=== PATIENT | female | born 1995 | race Caucasian/White ===

== ENCOUNTER → 2017-03-28 | Outpatient (CLI) | payer BC, OTHER ==
--- NOTE | 2017-03-31 13:25 | US ---
EXAM DATE: 03/28/17 PATIENT'S AGE: 21 Patient: DAWSON STEPHENS Facility: [facility], [place], [place] : 1995 Study: US OB Pelvis [id number]/12/2017 2:47:24 PM Ordering Physician: Jorge Godoy Final Report: Indication: Encounter for supervision of normal . Technique: Obstetric ultrasound. Comparison: No prior. Findings: There is a living single intrauterine gestation with calculated gestational age based on ultrasound measurements of 19 weeks 6 days. This is concordant with clinical age. Estimated weight is 304 g which is at the 33rd percentile. The heart rate is 144 beats per minute. - Measurements: Biparietal diameter: 4.9 cm, 20 weeks 5 days. Head circumference: 17.5 cm, 20 weeks 0 days. Abdominal circumference: 14.4 cm, 19 weeks 5 days. Femur length: 3 cm, 19 weeks 3 days. - Posterior placenta. Normal quantity amniotic fluid. - anatomic survey: Cerebral ventricles, cisterna magna, choroid plexus and cerebellum are unremarkable. Spine is unremarkable. Four-chamber heart, kidneys , urinary bladder and three-vessel cord are unremarkable. Four extremities unremarkable. Nasal bone unremarkable. No specific image of the upper lip was acquired. Impression: 1. Living single intrauterine gestation at 19 weeks 6 days based on ultrasound measurements. This is concordant with clinical age. 2. As visualized, the anatomic survey is unremarkable. No specific image of the upper lip was acquired. Consider obtaining an image of the upper lip to confirm that it is normal at a future followup examination. 3. Normal amniotic fluid. Dictated by Michael Ricardo MD @ Mar 28 2017 4:59PM (Electronic Signature) Report Signed by Proxy. CHRIS
== END ==
LOC: MW.US 13:00
PROVIDERS: ATTEND Advanced Practice Midwife
DX: Z34.90 Encounter for supervision of normal pregnancy, unspecified, unspecified trimester (principal); Z36 Encounter for antenatal screening of mother
CPT/HCPCS: 76805; 76805-26

== ENCOUNTER 2017-08-11 04:52 | Inpatient (IN) | payer BC, OTHER ==
[2017-08-11] MEDS ORDERED: Misoprostol 200 MCG Tab PO PRN (05:41)
[2017-08-11] MEDS ORDERED: Butorphanol 1 MG/ML SDV IVPUSH PRN (05:41)
[2017-08-11] MEDS ORDERED: Nalbuphine 10 MG/1 ML Vial IVPUSH PRN (05:41)
[2017-08-11] MEDS ORDERED: Carboprost Tromethamine 250 MCG/1 ML Amp IM PRN (05:41)
[2017-08-11] MEDS ORDERED: Methylergonovine 0.2 MG/1 ML Amp IM PRN (05:41)
[2017-08-11] MEDS ORDERED: Lidocaine 1% 50 ML MDV INJECT PRN (05:41)
[2017-08-11] MEDS ORDERED: Sodium Chloride 0.9% 2.5 ML Syringe FLUSH PRN (05:41)
[2017-08-11] MEDS ORDERED: Sodium Chloride 0.9% 10 ML Syringe FLUSH PRN (05:41)
[2017-08-11] MEDS ORDERED: Water For Irrigation,Sterile 1,000 ML Container IRR PRN (05:41)
[2017-08-11] MEDS ORDERED: Oxytocin/0.9 % Sodium Chloride 30 UNIT/500 ML BAG IV SCH ×2 (05:45→09:15)
[2017-08-11] MEDS ORDERED: FLU Vacc QS 2017-18 (36mos UP)/PF 60 MCG/0.5 ML Syringe IM ONE (06:30)
--- NOTE | 2017-08-11 08:05 | PCM.LDHP ---
L&D History of Present Illness - General Date of Service: 08/11/17 Admit Problem/Dx: Patient Status Order with Admit Dx/Problem 08/11/17 05:00 Patient Status [ADT] Routine 08/11/17 05:41 Patient Status [ADT] Routine Admission Diagnosis/Problem Admission Diagnosis/Problem 08/11/17 08:01 21yo G1 EDC 08/16/2017 39 2/7 weeks, A+, RI, GBS neg, Uneventful . History of Hodgkin lymphoma with Chemo, remission x2 yrs and Crohn disease. Source of Information: Patient History Limitations: Reports: No Limitations - History of Present Illness Location, : Reports: Abdomen Quality: Reports: Sharp Severity: Severe Improves with: Reports: None Worsens with: Reports: None Associated Symptoms: Reports: vaginal fluid - Related Data Allergies/Adverse Reactions: Allergies Allergy/AdvReac Type Severity Reaction Status Date / Time amoxicillin [From Augmentin] Allergy Cannot Verified 11/16/16 02:30 Remember clavulanic acid Allergy Cannot Verified 11/16/16 02:30 [From Augmentin] Remember Home Medications: Home Meds Hydrocodone/Acetaminophen [Lortab 5-325 mg Tablet] 1 each PO Q6HR PRN #8 tablet 11/16/16 [Rx] Ibuprofen [Motrin] 600 mg PO Q6H PRN #20 tablet 11/16/16 [Rx] Past Medical History HEENT History: Reports: None Cardiovascular History: Reports: None Respiratory History: Reports: None Gastrointestinal History: Reports: Other (See Below) Other Gastrointestinal History: crohns Genitourinary History: Reports: None 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 Musculoskeletal History: Reports: None Neurological History: Reports: None Psychiatric History: Reports: None Endocrine/Metabolic History: Reports: None Hematologic History: Reports: None Immunologic History: Reports: None Oncologic (Cancer) History: Reports: Hodgkin's Lymphoma Dermatologic History: Reports: None - Infectious Disease History Infectious Disease History: Reports: None - Past Surgical History HEENT Surgical History: Reports: None Cardiovascular Surgical History: Reports: None Musculoskeletal Surgical History: Reports: None Oncologic Surgical History: Reports: Bone Marrow Aspiration, Bone Marrow Transplant, Other (See Below) Other Oncologic Surgeries/Procedures: tube in back Social & Family History - Family History Family Medical History: Noncontributory - Tobacco Use Smoking Status *Q: Never Smoker Second Hand Smoke Exposure: No - Caffeine Use Caffeine Use: Reports: Coffee, Energy Drinks, Soda - Recreational Drug Use Recreational Drug Use: No H&P Review of Systems - Review of Systems: Review Of Systems: See Below General: Reports: No Symptoms HEENT: Reports: No Symptoms Pulmonary: Reports: No Symptoms Cardiovascular: Reports: No Symptoms Gastrointestinal: Reports: No Symptoms Genitourinary: Reports: No Symptoms Musculoskeletal: Reports: No Symptoms Skin: Reports: No Symptoms Psychiatric: Reports: No Symptoms Neurological: Reports: No Symptoms Hematologic/Lymphatic: Reports: No Symptoms Immunologic: Reports: No Symptoms L&D Exam - Exam Exam: See Below - Vital Signs Weight: 47.6 kg - Exam General: Alert, Oriented HEENT: Hearing Intact, PERRLA Lungs: Normal Respiratory Effort GI/Abdominal Exam: Soft, Non-Tender, No Organomegaly, No Distention, No Abnormal Bruit, No Mass, Pelvis Stable Rectal Exam: Deferred Genitourinary: Normal external exam, Normal bimanual exam, Cervical dilitation Back Exam: Full Range of Motion Extremities: Normal Inspection, Normal Range of Motion, Non-Tender, No Pedal Edema, Normal Capillary Refill Skin: Warm, Dry, Intact Neurological: Reflexes Equal Bilateral Psychiatric: Alert, Normal Affect, Normal Mood - Patient Data Lab Results Last 24 hrs: Laboratory Results - last 24 hr 08/11/17 08/11/17 08/11/17 Range/Units 05:15 05:59 05:59 WBC 10.28 (4.0-11.0) K/uL RBC 4.24 L (4.30-5.90) M/uL Hgb 10.6 L (12.0-16.0) g/dL Hct 33.4 L (36.0-46.0) % MCV 78.8 L (80.0-98.0) fL MCH 25.0 L (27.0-32.0) pg MCHC 31.7 (31.0-37.0) g/dL RDW Std Deviation 45.1 (28.0-62.0) fl RDW Coeff of Pallavi 16 H (11.0-15.0) % Plt Count 267 (150-400) K/uL MPV 9.80 (7.40-12.00) fL Nucleated RBC % 0.0 /100WBC Nucleated RBCs # 0 K/uL Membrane Rupture POSITIVE Blood Type A POSITIVE Antibody Screen NEGATIVE Result Diagrams: 08/11/17 05:59 - Problem List (1) Supervision of normal IUP (intrauterine ) in primigravida SNOMED Code(s): 91111936, 640206423, 250987359, 208389128 ICD Code: Z34.00 - ENCNTR FOR SUPRVSN OF NORMAL FIRST , UNSP TRIMESTER Status: Acute Current Visit: Yes Qualifiers: Trimester: third trimester Qualified Code(s): Z34.03 - Encounter for supervision of normal first , third trimester (2) SROM (spontaneous rupture of membranes) SNOMED Code(s): 985832919 ICD Code: [id number] - Status: Acute Priority: High Current Visit: Yes Problem List Initiated/Reviewed/Updated: Yes Orders Last 24hrs: Active Orders 24 hr Category Date Time Status Patient Status [ADT] Routine ADT 08/11/17 05:41 Active Heart Tones [RC] CONTINUOUS Care 08/11/17 05:41 Active Non Stress Test [RC] PER UNIT ROUTINE Care 08/11/17 05:00 Active Non Stress Test [RC] PER UNIT ROUTINE Care 08/11/17 05:41 Active May Shower [RC] ASDIRECTED Care 08/11/17 05:41 Active Notify Provider [RC] PRN Care 08/11/17 05:41 Active Up ad Mera [RC] ASDIRECTED Care 08/11/17 05:00 Active Up ad Mera [RC] ASDIRECTED Care 08/11/17 05:41 Active Vaginal Exam [RC] Click to Edit Care 08/11/17 05:00 Active Vaginal Exam [RC] PRN Care 08/11/17 05:41 Active Vital Signs [RC] PER UNIT ROUTINE Care 08/11/17 05:00 Active Vital Signs [RC] PER UNIT ROUTINE Care 08/11/17 05:41 Active Butorphanol [Stadol] Med 08/11/17 05:41 Active 1 mg IVPUSH Q1H PRN Carboprost Tromethamine [Hemabate DS] Med 08/11/17 05:41 Active 250 mcg IM ASDIRECTED PRN Lactated Ringers [Ringers, Lactated] 1,000 ml Med 08/11/17 05:45 Active IV ASDIRECTED Lidocaine 1% [Xylocaine 1%] Med 08/11/17 05:41 Active 50 ml INJECT .ONCE PRN Methylergonovine [Methergine] Med 08/11/17 05:41 Active 0.2 mg IM ASDIRECTED PRN Misoprostol [Cytotec] Med 08/11/17 05:41 Active 200 mcg PO .ONCE PRN Nalbuphine [Nubain] Med 08/11/17 05:41 Active 10 mg IVPUSH Q1H PRN Oxytocin/0.9 % Sodium Chloride [Oxytocin 30 Unit/500 ML Med 08/11/17 05:45 Active -NS] 30 unit in 500 ml IV TITRATE Sodium Chloride 0.9% [Saline Flush] Med 08/11/17 05:41 Active 10 ml FLUSH ASDIRECTED PRN Sodium Chloride 0.9% [Saline Flush] Med 08/11/17 05:41 Active 2.5 ml FLUSH ASDIRECTED PRN Water For Irrigation,Sterile [Sterile Water for Med 08/11/17 05:41 Active Irrigation] 1,000 ml IRR ASDIRECTED PRN Scalp Electrode [WOMSER] Per Unit Routine Oth 08/11/17 05:41 Ordered Peripheral IV Insertion Adult [OM.PC] Routine Oth 08/11/17 05:41 Ordered Resuscitation Status Routine Resus Stat 08/11/17 05:00 Ordered Medication Orders Butorphanol Tartrate (Stadol) 1 mg IVPUSH Q1H PRN PRN Reason: Pain Carboprost Tromethamine (Hemabate Ds) 250 mcg IM ASDIRECTED PRN PRN Reason: Post Hemorrhage Lactated Ringer's (Ringers, Lactated) 1,000 mls @ 150 mls/hr IV ASDIRECTED ALLIE Oxytocin/Sodium Chloride (Oxytocin 30 Unit/500 Ml-Ns) 30 unit in 500 mls @ 500 mls/hr IV TITRATE ALLIE Lidocaine HCl (Xylocaine 1%) 50 ml INJECT .ONCE PRN PRN Reason: Laceration repair Methylergonovine Maleate (Methergine) 0.2 mg IM ASDIRECTED PRN PRN Reason: Post Hemorrhage Misoprostol (Cytotec) 200 mcg PO .ONCE PRN PRN Reason: Post Hemorrhage Nalbuphine HCl (Nubain) 10 mg IVPUSH Q1H PRN PRN Reason: Pain (severe 7-10) Sodium Chloride (Saline Flush) 10 ml FLUSH ASDIRECTED PRN PRN Reason: Keep Vein Open Sodium Chloride (Saline Flush) 2.5 ml FLUSH ASDIRECTED PRN PRN Reason: Keep Vein Open Sterile Water (Sterile Water For Irrigation) 1,000 ml IRR ASDIRECTED PRN PRN Reason: delivery Assessment/Plan Comment:: Labor A: 21yo G1 EDC 08/16/2017 39 2/7 weeks, A+, RI, GBS neg, Uneventful . History of Hodgkin lymphoma with Chemo, remission x2 yrs and Crohn disease. A: Admit to L&D, start pitocin per protocol, anticipate Dr Ann riojas updated
[2017-08-11] MEDS ORDERED: Terbutaline 1 MG/ML SDV SUBCUT PRN (09:02)
[2017-08-11] MEDS ORDERED: Misoprostol 25 MCG (1/4 of 100 MCG) Tab VAG PRN (09:02)
[2017-08-11] MEDS ORDERED: Misoprostol 25 MCG (1/4 of 100 MCG) Tab VAG SCH (09:15)
[2017-08-11] MEDS ORDERED: Ondansetron 4 MG/2 ML SDV ONE (09:44)
[2017-08-11] MEDS: Lactated Ringers 1,000 ML IV SCH ×3 (12:24→13:29)
--- NOTE | 2017-08-11 12:33 | PCM.PREANE ---
Preanesthetic Assessment - Anesthesia/Transfusion/Family Hx Anesthesia History: Prior Anesthesia Without Reaction Transfusion History: No Prior Transfusion(s) - Review of Systems General: No Symptoms Pulmonary: No Symptoms Cardiovascular: No Symptoms Gastrointestinal: No Symptoms Neurological: No Symptoms Other: Reports: None - Physical Assessment Height: 5 ft 4.17 in Weight: 47.6 kg ASA Class: 2 Mental Status: Alert & Oriented x3 Airway Class: Mallampati = 2 Dentition: Reports: Normal Dentition Thyro-Mental Finger Breadths: 3 Mouth Opening Finger Breadths: 3 ROM/Head Extension: Full Lungs: Clear to Auscultation, Normal Respiratory Effort Cardiovascular: Regular Rate, Regular Rhythm - Lab Values: Laboratory Last Values WBC 10.28 K/uL (4.0-11.0) 08/11/17 05:59 RBC 4.24 M/uL (4.30-5.90) L 08/11/17 05:59 Hgb 10.6 g/dL (12.0-16.0) L 08/11/17 05:59 Hct 33.4 % (36.0-46.0) L 08/11/17 05:59 MCV 78.8 fL (80.0-98.0) L 08/11/17 05:59 MCH 25.0 pg (27.0-32.0) L 08/11/17 05:59 MCHC 31.7 g/dL (31.0-37.0) 08/11/17 05:59 RDW Std Deviation 45.1 fl (28.0-62.0) 08/11/17 05:59 RDW Coeff of Pallavi 16 % (11.0-15.0) H 08/11/17 05:59 Plt Count 267 K/uL (150-400) 08/11/17 05:59 MPV 9.80 fL (7.40-12.00) 08/11/17 05:59 Nucleated RBC % 0.0 /100WBC 08/11/17 05:59 Nucleated RBCs # 0 K/uL 08/11/17 05:59 Membrane Rupture POSITIVE 08/11/17 05:15 Blood Type A POSITIVE 08/11/17 05:59 Antibody Screen NEGATIVE 08/11/17 05:59 - Allergies Allergies/Adverse Reactions: Allergies Allergy/AdvReac Type Severity Reaction Status Date / Time amoxicillin [From Augmentin] Allergy Cannot Verified 11/16/16 02:30 Remember clavulanic acid Allergy Cannot Verified 11/16/16 02:30 [From Augmentin] Remember - Acknowledgements Anesthesia Type Planned: Epidural Pt an Appropriate Candidate for the Planned Anesthesia: Yes Alternatives and Risks of Anesthesia Discussed w Pt/Guardian: Yes Pt/Guardian Understands and Agrees with Anesthesia Plan: Yes PreAnesthesia Questionnaire HEENT History: Reports: None Cardiovascular History: Reports: None Respiratory History: Reports: None Gastrointestinal History: Reports: Other (See Below) Other Gastrointestinal History: crohns Genitourinary History: Reports: None 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 : 1 Para: 0 LMP (Approximate): Musculoskeletal History: Reports: None Neurological History: Reports: None Psychiatric History: Reports: None Endocrine/Metabolic History: Reports: None Hematologic History: Reports: None Immunologic History: Reports: None Oncologic (Cancer) History: Reports: Hodgkin's Lymphoma (remission x 2 years) Dermatologic History: Reports: None - Infectious Disease History Infectious Disease History: Reports: None - Past Surgical History HEENT Surgical History: Reports: None Cardiovascular Surgical History: Reports: None Musculoskeletal Surgical History: Reports: None Oncologic Surgical History: Reports: Bone Marrow Aspiration, Bone Marrow Transplant, Other (See Below) Other Oncologic Surgeries/Procedures: tube in back - SUBSTANCE USE Smoking Status *Q: Never Smoker Second Hand Smoke Exposure: No Recreational Drug Use History: No - HOME MEDS Home Medications: Home Meds Hydrocodone/Acetaminophen [Lortab 5-325 mg Tablet] 1 each PO Q6HR PRN #8 tablet 11/16/16 [Rx] Ibuprofen [Motrin] 600 mg PO Q6H PRN #20 tablet 11/16/16 [Rx] - CURRENT (IN HOUSE) MEDS Current Meds: Current Medications Butorphanol Tartrate (Stadol) 1 mg IVPUSH Q1H PRN PRN Reason: Pain Carboprost Tromethamine (Hemabate Ds) 250 mcg IM ASDIRECTED PRN PRN Reason: Post Hemorrhage Lactated Ringer's (Ringers, Lactated) 1,000 mls @ 150 mls/hr IV ASDIRECTED ALLIE Last Admin: 08/11/17 12:24 Dose: 999 mls/hr Oxytocin/Sodium Chloride (Oxytocin 30 Unit/500 Ml-Ns) 30 unit in 500 mls @ 500 mls/hr IV TITRATE ALLIE Oxytocin/Sodium Chloride (Oxytocin 30 Unit/500 Ml-Ns) 30 unit in 500 mls @ 2 mls/hr IV TITRATE ALLIE; 2 MUNITS/MIN PRN Reason: Protocol Last Titration: 08/11/17 11:15 Dose: 4 munits/min, 4 mls/hr Lidocaine HCl (Xylocaine 1%) 50 ml INJECT .ONCE PRN PRN Reason: Laceration repair Methylergonovine Maleate (Methergine) 0.2 mg IM ASDIRECTED PRN PRN Reason: Post Hemorrhage Misoprostol (Cytotec) 200 mcg PO .ONCE PRN PRN Reason: Post Hemorrhage Misoprostol (Cytotec) 25 mcg VAG .ONCE ALLIE Misoprostol (Cytotec) 25 mcg VAG Q4H PRN PRN Reason: Cervical Ripening Nalbuphine HCl (Nubain) 10 mg IVPUSH Q1H PRN PRN Reason: Pain (severe 7-10) Last Admin: 08/11/17 09:58 Dose: 10 mg Sodium Chloride (Saline Flush) 10 ml FLUSH ASDIRECTED PRN PRN Reason: Keep Vein Open Sodium Chloride (Saline Flush) 2.5 ml FLUSH ASDIRECTED PRN PRN Reason: Keep Vein Open Sterile Water (Sterile Water For Irrigation) 1,000 ml IRR ASDIRECTED PRN PRN Reason: delivery Terbutaline Sulfate (Brethine) 0.25 mg SUBCUT ASDIRECTED PRN PRN Reason: Tacysystole Discontinued Medications Ondansetron HCl (Zofran) Confirm Administered Dose 4 mg .ROUTE .[facility] ONE Stop: 08/11/17 09:45 Last Admin: 08/11/17 09:58 Dose: 4 mg
[2017-08-11] MEDS ORDERED: Ropivacaine HCl/PF 100 ML ONE ×2 (12:37→21:26)
[2017-08-11] MEDS ORDERED: fentaNYL 100 MCG/2 ML SDV ONE (12:37)
[2017-08-11] MEDS ORDERED: Phenylephrine 1% 10 MG/ML SDV ONE (13:33)
[2017-08-11] MEDS ORDERED: Bupivacaine 0.25% 10 ML SDV ONE (19:29)
[2017-08-11] MEDS ORDERED: Acetaminophen 500 MG Tab PO ONE (20:27)
[2017-08-11] MEDS ORDERED: Acetaminophen 500 MG Tab PO PRN ×2 (21:53)
[2017-08-11] MEDS ORDERED: oxyCODONE 5 MG Tab PO PRN (21:53)
[2017-08-11] MEDS ORDERED: Benzocaine/Menthol 20%-0.5% Spray 78 GM Cannister TOP PRN (21:53)
[2017-08-11] MEDS ORDERED: Bisacodyl 10 MG Supp RECTAL PRN (21:53)
[2017-08-11] MEDS ORDERED: Docusate Sodium 100 MG Cap PO PRN (21:53)
[2017-08-11] MEDS ORDERED: Lanolin 100% Cream 7 GM Tube TOP PRN (21:53)
[2017-08-11] MEDS ORDERED: Ibuprofen 400 MG Tab PO PRN (21:53)
[2017-08-11] MEDS ORDERED: Witch Hazel Medicated Pads 40/Jar TOP PRN (21:53)
--- NOTE | 2017-08-11 22:00 | PCM.DEL ---
L & D Note - General Info Date of Service: 08/11/17 Mother's Due Date: 08/16/17 - Delivery Note Labor: Spontaneous, Augmented by Oxytocin Delivery Outcome: Livebirth Infant Delivery Method: Spontaneous Vaginal Delivery-Single Presentation: Vertex Nuchal Cord: Present (x2 tight, cut at the perineum) Anesthesia Type: Epidural Amniotic Fluid Description: Clear Episiotomy Type: None Laceration: None Placenta: Intact, Spontaneous Cord: 3 Vessels Estimated Blood Loss: 100 Resuscitation Needed: No [place]: Stimulated Score 1 min: 8 Score 5 min: 8 Second Stage Interventions: Reports: Pushing Effectively Delivery Comments (Free Text/Narrative):: of viable female. Head delivered, nuchle x2 tight and clamped x2 and cut on the perineum. Shoulders and body followed easily. Infant spont cry placed on mothers abd with RN at for evaluation, Cord blood collected. Pitocin to IVF. Placenta delivered grossly intact. Inspection noted intact perineum. Bimanual normal exam. APGARS 8/8, Wt: 7lb 3oz, EBL 100cc. Mother and left in stable condition bonding well. Induction Criteria - Augmentation Estimated Pelvis: Reports: Adequate Weight Estimated:: Reports: AGA Estimated Weight if LGA: 3300 kg Reassuring Monitoring Strip: Yes Absence of Tachy Systole: Yes - General Info Date of Service: 08/11/17 Admission Dx/Problem (Free Text): Patient Status Order with Admit Dx/Problem 08/11/17 05:00 Patient Status [ADT] Routine 08/11/17 05:41 Patient Status [ADT] Routine Admission Diagnosis/Problem Admission Diagnosis/Problem 08/11/17 08:01 21yo G1 EDC 08/16/2017 39 2/7 weeks, A+, RI, GBS neg, Uneventful . History of Hodgkin lymphoma with Chemo, remission x2 yrs and Crohn disease. Functional Status: Reports: Pain Controlled - Review of Systems General: Reports: No Symptoms HEENT: Reports: No Symptoms Pulmonary: Reports: No Symptoms Cardiovascular: Reports: No Symptoms Gastrointestinal: Reports: No Symptoms Genitourinary: Reports: No Symptoms Musculoskeletal: Reports: No Symptoms Skin: Reports: No Symptoms Neurological: Reports: No Symptoms Psychiatric: Reports: No Symptoms - Patient Data Weight - Most Recent: 47.6 kg Lab Results Last 24 Hours: Laboratory Results - last 24 hr 08/11/17 08/11/17 08/11/17 Range/Units 05:15 05:59 05:59 WBC 10.28 (4.0-11.0) K/uL RBC 4.24 L (4.30-5.90) M/uL Hgb 10.6 L (12.0-16.0) g/dL Hct 33.4 L (36.0-46.0) % MCV 78.8 L (80.0-98.0) fL MCH 25.0 L (27.0-32.0) pg MCHC 31.7 (31.0-37.0) g/dL RDW Std Deviation 45.1 (28.0-62.0) fl RDW Coeff of Pallavi 16 H (11.0-15.0) % Plt Count 267 (150-400) K/uL MPV 9.80 (7.40-12.00) fL Nucleated RBC % 0.0 /100WBC Nucleated RBCs # 0 K/uL Membrane Rupture POSITIVE Blood Type A POSITIVE Antibody Screen NEGATIVE Med Orders - Current: Current Medications Discontinued Medications Acetaminophen (Tylenol Extra Strength) 1,000 mg PO ONETIME ONE Stop: 08/11/17 20:28 Bupivacaine HCl (Sensorcaine-Mpf 0.25%) Confirm Administered Dose 10 ml .ROUTE .[facility]-MED ONE Stop: 08/11/17 19:30 Butorphanol Tartrate (Stadol) 1 mg IVPUSH Q1H PRN PRN Reason: Pain Carboprost Tromethamine (Hemabate Ds) 250 mcg IM ASDIRECTED PRN PRN Reason: Post Hemorrhage Fentanyl (Sublimaze) Confirm Administered Dose 100 mcg .ROUTE .[facility]-MED ONE Stop: 08/11/17 12:38 Lactated Ringer's (Ringers, Lactated) 1,000 mls @ 150 mls/hr IV ASDIRECTED ALLIE Last Admin: 08/11/17 13:29 Dose: 999 mls/hr Oxytocin/Sodium Chloride (Oxytocin 30 Unit/500 Ml-Ns) 30 unit in 500 mls @ 500 mls/hr IV TITRATE ALLIE Oxytocin/Sodium Chloride (Oxytocin 30 Unit/500 Ml-Ns) 30 unit in 500 mls @ 2 mls/hr IV TITRATE ALLIE; 2 MUNITS/MIN PRN Reason: Protocol Last Titration: 08/11/17 17:12 Dose: 2 munits/min, 2 mls/hr Ropivacaine (Naropin 0.2%) Confirm Administered Dose 100 mls @ as directed .ROUTE .[facility]-MED ONE Stop: 08/11/17 12:38 Ropivacaine (Naropin 0.2%) Confirm Administered Dose 100 [facility]ls @ as [facility]: 08/11/17 21:27 Lidocaine HCl (Xylocaine 1%) 50 ml INJECT .ONCE PRN PRN Reason: Laceration repair Methylergonovine Maleate (Methergine) 0.2 mg IM ASDIRECTED PRN PRN Reason: Post Hemorrhage Misoprostol (Cytotec) 200 mcg PO .ONCE PRN PRN Reason: Post Hemorrhage Misoprostol (Cytotec) 25 mcg VAG .ONCE ALLIE Misoprostol (Cytotec) 25 mcg VAG Q4H PRN PRN Reason: Cervical Ripening Nalbuphine HCl (Nubain) 10 mg IVPUSH Q1H PRN PRN Reason: Pain (severe 7-10) Last Admin: 08/11/17 09:58 Dose: 10 mg Ondansetron HCl (Zofran) Confirm Administered Dose 4 mg .ROUTE .[facility] ONE Stop: 08/11/17 09:45 Last Admin: 08/11/17 09:58 Dose: 4 mg Phenylephrine HCl (Juan A-Synephrine) Confirm Administered Dose 10 mg .ROUTE .[facility]- MED ONE Stop: 08/11/17 13:34 Sodium Chloride (Saline Flush) 10 ml FLUSH ASDIRECTED PRN PRN Reason: Keep Vein Open Sodium Chloride (Saline Flush) 2.5 ml FLUSH ASDIRECTED PRN PRN Reason: Keep Vein Open Sterile Water (Sterile Water For Irrigation) 1,000 ml IRR ASDIRECTED PRN PRN Reason: delivery Terbutaline Sulfate (Brethine) 0.25 mg SUBCUT ASDIRECTED PRN PRN Reason: Tacysystole Last Admin: 08/11/17 13:15 Dose: 0.25 mg - Exam General: Alert, Oriented, Cooperative, No Acute Distress Lungs: Normal Respiratory Effort GI/Abdominal Exam: Soft, Non-Tender, No Distention (Female) Exam: Normal External Exam, Normal Bimanual Exam, Vaginal Bleeding Back Exam: Full Range of Motion Extremities: Normal Range of Motion, Non-Tender, No Pedal Edema, Normal Capillary Refill Skin: Warm, Dry, Intact Wound/Incisions: Healing Well Neurological: No New Focal Deficit, Normal Speech, Normal Tone Psy/Mental Status: Alert, Normal Affect, Normal Mood - Problem List & Annotations (1) Supervision of normal IUP (intrauterine ) in primigravida SNOMED Code(s): 18945769, 194486605, 822398698, 550551918 Code(s): Z34.00 - ENCNTR FOR SUPRVSN OF NORMAL FIRST , UNSP TRIMESTER Status: Acute Current Visit: Yes Qualifiers: Trimester: third trimester Qualified Code(s): Z34.03 - Encounter for supervision of normal first , third trimester (2) SROM (spontaneous rupture of membranes) SNOMED Code(s): 169019660 Code(s): VVW0001 - Status: Acute Priority: High Current Visit: Yes (3) (normal spontaneous vaginal delivery) SNOMED Code(s): 68226529 Code(s): O80 - ENCOUNTER FOR FULL-TERM UNCOMPLICATED DELIVERY Status: Acute Priority: High Current Visit: Yes - Problem List Review Problem List Initiated/Reviewed/Updated: Yes - My Orders Last 24 Hours: My Active Orders 08/11/17 05:00 Non Stress Test [RC] PER UNIT ROUTINE Vaginal Exam [RC] Click to Edit Vital Signs [RC] PER UNIT ROUTINE 08/11/17 05:41 Heart Tones [RC] CONTINUOUS Non Stress Test [RC] PER UNIT ROUTINE May Shower [RC] ASDIRECTED Notify Provider [RC] PRN Up ad Mera [RC] ASDIRECTED Vaginal Exam [RC] PRN Vital Signs [RC] PER UNIT ROUTINE 08/11/17 09:02 Bedrest Bathroom Privileges [RC] ASDIRECTED Communication Order [RC] ASDIRECTED Communication Order [RC] ASDIRECTED Notify Provider [RC] PRN Notify Provider [RC] STAT Oxygen Therapy [RC] ASDIRECTED Vaginal Exam [RC] PRN Vital Signs [RC] PER UNIT ROUTINE 08/11/17 21:53 Patient Status [ADT] Routine May Shower [RC] ASDIRECTED Up ad Mera [RC] ASDIRECTED Vital Signs [RC] PER UNIT ROUTINE Acetaminophen [Tylenol Extra Strength] 1,000 mg PO Q4H PRN Acetaminophen [Tylenol Extra Strength] 500 mg PO Q4H PRN Benzocaine/Menthol [Dermoplast Pain Relief 20%-0.5% Artesian] 78 gm TOP ASDIRECTED PRN Bisacodyl [Dulcolax] 10 mg RECTAL .ONCE PRN Docusate Sodium [Colace] 100 mg PO BID PRN Ibuprofen [Motrin] 400 mg PO Q4H PRN Ibuprofen [Motrin] 800 mg PO Q6H PRN Lanolin [Lansinoh HPA] See Dose Instructions TOP ASDIRECTED PRN Witch Polina [Tucks] 1 pad TOP ASDIRECTED PRN oxyCODONE 5 mg PO Q2H PRN Assess Lochia [WOMSER] Per Unit Routine Assess Uterine Involution [WOMSER] Per Unit Routine Peripheral IV Discontinue [OM.PC] Routine Resuscitation Status Routine 08/12/17 Breakfast Regular Diet [DIET] - Assessment Assessment:: Delivery A: over intact perineum. APGARS 8/8, WT 7lb 3oz, EBL 100cc. VSS, Temp 100.3 Stable - Plan Plan:: Labor A: 21yo G1 EDC 08/16/2017 39 2/7 weeks, A+, RI, GBS neg, Uneventful . History of Hodgkin lymphoma with Chemo, remission x2 yrs and Crohn disease. P: Admit to L&D, start pitocin per protocol, anticipate Dr Ann riojas updated Delivery: P: Routine pp plan of care.
[2017-08-12] MEDS: Ibuprofen 800 MG Tab PO PRN ×2 (01:35→13:53)
--- NOTE | 2017-08-12 07:34 | PCM48HPAN ---
Post Anesthesia Note - EVALUATION WITHIN 48HRS OF ANESTHETIC Vital Signs in Normal Range: Yes Patient Participated in Evaluation: Yes Respiratory Function Stable: Yes Airway Patent: Yes Cardiovascular Function Stable: Yes Hydration Status Stable: Yes Pain Control Satisfactory: Yes Nausea and Vomiting Control Satisfactory: Yes Mental Status Recovered: Yes
--- NOTE | 2017-08-12 09:23 | PCM.PNPP ---
- General Info Date of Service: 08/12/17 Functional Status: Reports: Pain Controlled - Review of Systems General: Reports: No Symptoms HEENT: Reports: No Symptoms Pulmonary: Reports: No Symptoms Cardiovascular: Reports: No Symptoms Gastrointestinal: Reports: No Symptoms Genitourinary: Reports: No Symptoms Musculoskeletal: Reports: No Symptoms Skin: Reports: No Symptoms Neurological: Reports: No Symptoms Psychiatric: Reports: No Symptoms - General Info Date of Service: 08/12/17 - Patient Data Vital Signs - Most Recent: Last Vital Signs Temp 36.9 C 08/12/17 08:10 Pulse 64 08/12/17 08:10 Resp 18 08/12/17 08:10 BP 97/53 L 08/12/17 08:10 Pulse Ox 99 08/12/17 08:10 Weight - Most Recent: 47.6 kg Med Orders - Current: Current Medications Acetaminophen (Tylenol Extra Strength) 500 mg PO Q4H PRN PRN Reason: Pain Acetaminophen (Tylenol Extra Strength) 1,000 mg PO Q4H PRN PRN Reason: Pain Benzocaine/Menthol (Dermoplast Pain Relief 20%-0.5% [place]) 0 gm TOP ASDIRECTED PRN PRN Reason: Perineal Comfort Measure Last Admin: 08/12/17 00:48 Dose: 1 can Bisacodyl (Dulcolax) 10 mg RECTAL .ONCE PRN PRN Reason: Constipation Docusate Sodium (Colace) 100 mg PO BID PRN PRN Reason: Constipation Emollient Ointment (Lansinoh Hpa) 0 gm TOP ASDIRECTED PRN PRN Reason: Sore Nipples Last Admin: 08/12/17 00:48 Dose: 1 tube Ibuprofen (Motrin) 400 mg PO Q4H PRN PRN Reason: Pain Ibuprofen (Motrin) 800 mg PO Q6H PRN PRN Reason: Pain Last Admin: 08/12/17 01:35 Dose: 800 mg Oxycodone HCl (Oxycodone) 5 mg PO Q2H PRN PRN Reason: Pain Last Admin: 08/12/17 01:39 Dose: 5 mg Witch Polina (Tucks) 1 pad TOP ASDIRECTED PRN PRN Reason: comfort care Last Admin: 08/12/17 00:47 Dose: 1 tub Discontinued Medications Acetaminophen (Tylenol Extra Strength) 1,000 mg PO ONETIME ONE Stop: 08/11/17 20:28 Last Admin: 08/12/17 06:30 Dose: Not Given Bupivacaine HCl (Sensorcaine-Mpf 0.25%) Confirm Administered Dose 10 ml .ROUTE .STK-MED ONE Stop: 08/11/17 19:30 Last Admin: 08/11/17 23:43 Dose: Not Given Butorphanol Tartrate (Stadol) 1 mg IVPUSH Q1H PRN PRN Reason: Pain Carboprost Tromethamine (Hemabate Ds) 250 mcg IM ASDIRECTED PRN PRN Reason: Post Hemorrhage Fentanyl (Sublimaze) Confirm Administered Dose 100 mcg .ROUTE .STK-MED ONE Stop: 08/11/17 12:38 Last Admin: 08/11/17 23:42 Dose: Not Given Lactated Ringer's (Ringers, Lactated) 1,000 mls @ 150 mls/hr IV ASDIRECTED ALLIE Last Admin: 08/11/17 13:29 Dose: 999 mls/hr Oxytocin/Sodium Chloride (Oxytocin 30 Unit/500 Ml-Ns) 30 unit in 500 mls @ 500 mls/hr IV TITRATE ALLIE Oxytocin/Sodium Chloride (Oxytocin 30 Unit/500 Ml-Ns) 30 unit in 500 mls @ 2 mls/hr IV TITRATE ALLIE; 2 MUNITS/MIN PRN Reason: Protocol Last Titration: 08/11/17 21:38 Dose: 999 mls/hr Ropivacaine (Naropin 0.2%) Confirm Administered Dose 100 mls @ as directed .ROUTE .STK-MED ONE Stop: 08/11/17 12:38 Last Admin: 08/11/17 23:42 Dose: Not Given Ropivacaine (Naropin 0.2%) Confirm Administered Dose 100 mls @ as directed .ROUTE .STK-MED ONE Stop: 08/11/17 21:27 Last Admin: 08/11/17 23:43 Dose: Not Given Lidocaine HCl (Xylocaine 1%) 50 ml INJECT .ONCE PRN PRN Reason: Laceration repair Methylergonovine Maleate (Methergine) 0.2 mg IM ASDIRECTED PRN PRN Reason: Post Hemorrhage Misoprostol (Cytotec) 200 mcg PO .ONCE PRN PRN Reason: Post Hemorrhage Misoprostol (Cytotec) 25 mcg VAG .ONCE ALLIE Misoprostol (Cytotec) 25 mcg VAG Q4H PRN PRN Reason: Cervical Ripening Nalbuphine HCl (Nubain) 10 mg IVPUSH Q1H PRN PRN Reason: Pain (severe 7-10) Last Admin: 08/11/17 09:58 Dose: 10 mg Ondansetron HCl (Zofran) Confirm Administered Dose 4 mg .ROUTE .STK-MED ONE Stop: 08/11/17 09:45 Last Admin: 08/11/17 09:58 Dose: 4 mg Phenylephrine HCl (Juan A-Synephrine) Confirm Administered Dose 10 mg .ROUTE .STK- MED ONE Stop: 08/11/17 13:34 Last Admin: 08/12/17 06:28 Dose: Not Given Sodium Chloride (Saline Flush) 10 ml FLUSH ASDIRECTED PRN PRN Reason: Keep Vein Open Sodium Chloride (Saline Flush) 2.5 ml FLUSH ASDIRECTED PRN PRN Reason: Keep Vein Open Sterile Water (Sterile Water For Irrigation) 1,000 ml IRR ASDIRECTED PRN PRN Reason: delivery Terbutaline Sulfate (Brethine) 0.25 mg SUBCUT ASDIRECTED PRN PRN Reason: Tacysystole Last Admin: 08/11/17 13:15 Dose: 0.25 mg - Infant Interaction Infant Disposition, : [place] in Room with Family Infant Interaction: Holding Infant Infant Feeding: Attempted ; Nursed Fair/Poor Support Person: Mother, Significant Other - Recovery Exam Fundal Tone: Firm Fundal Level: 2 Fingerbreadths Below Umbilicus Fundal Placement: Midline Lochia Amount: Scant Lochia Color: Rubra/Red Perineum Description: Edematous Episiotomy/Laceration: None Bladder Status: Voiding - Exam General: Alert, Oriented HEENT: Pupils Equal Neck: Supple Lungs: Clear to Auscultation, Normal Respiratory Effort Cardiovascular: Regular Rate, Regular Rhythm GI/Abdominal Exam: Normal Bowel Sounds, Soft, Non-Tender, No Organomegaly, No Distention, No Abnormal Bruit, No Mass, Pelvis Stable Extremities: Normal Inspection, Normal Range of Motion, Non-Tender, No Pedal Edema, Normal Capillary Refill Skin: Warm, Dry, Intact Wound/Incisions: Healing Well Neurological: No New Focal Deficit Psy/Mental Status: Alert, Normal Affect, Normal Mood - Problem List Review Problem List Initiated/Reviewed/Updated: Yes - Assessment Assessment:: Delivery A: over intact perineum. APGARS 8/8, WT 7lb 3oz, EBL 100cc. VSS, Temp 100.3 Stable - Plan Plan:: Labor A: 21yo G1 EDC 08/16/2017 39 2/7 weeks, A+, RI, GBS neg, Uneventful . History of Hodgkin lymphoma with Chemo, remission x2 yrs and Crohn disease. P: Admit to L&D, start pitocin per protocol, anticipate sve, Dr Juarez updated Delivery: P: Routine pp plan of care.
--- NOTE | 2017-08-13 08:20 | PCM.DCSUM1 ---
Discharge Summary - Hospital Course Free Text/Narrative:: Discharge home with infant. Follow up in 6 weeks or sooner if needed. - Discharge Data Discharge Date: 08/13/17 Discharge Disposition: Home, Self-Care 01 Condition: Good - Discharge Diagnosis/Problem(s) (1) Supervision of normal IUP (intrauterine ) in primigravida SNOMED Code(s): 94915906, 087125176, 584987757, 836179866 ICD Code: Z34.00 - ENCNTR FOR SUPRVSN OF NORMAL FIRST , UNSP TRIMESTER Status: Acute Current Visit: Yes Qualifiers: Trimester: third trimester Qualified Code(s): Z34.03 - Encounter for supervision of normal first , third trimester (2) SROM (spontaneous rupture of membranes) SNOMED Code(s): 889696606 ICD Code: [id number] - Status: Acute Priority: High Current Visit: Yes (3) (normal spontaneous vaginal delivery) SNOMED Code(s): 92980730 ICD Code: O80 - ENCOUNTER FOR FULL-TERM UNCOMPLICATED DELIVERY Status: Acute Priority: High Current Visit: Yes - Patient Instructions Diet: Usual Diet as Tolerated Activity: As Tolerated, Rest and Relax Today Driving: May Drive Today Showering/Bathing: May Shower Notify Provider of: Fever, Increased Pain, Swelling and Redness, Nausea and/or Vomiting Other/Special Instructions: Discharge home with infant. Follow up in 6 weeks or sooner if needed. - Discharge Plan Home Medications: Home Meds Hydrocodone/Acetaminophen [Lortab 5-325 mg Tablet] 1 each PO Q6HR PRN #8 tablet 11/16/16 [Rx] Ibuprofen [Motrin] 600 mg PO Q6H PRN #20 tablet 11/16/16 [Rx] Referrals: [facility] [Outside] Jayne Patel CNM [Mid-] - 09/22/17 10:45 am - General Info Date of Service: 08/13/17 Admission Dx/Problem (Free Text: Patient Status Order with Admit Dx/Problem 08/11/17 05:00 Patient Status [ADT] Routine 08/11/17 05:41 Patient Status [ADT] Routine Admission Diagnosis/Problem Admission Diagnosis/Problem 08/11/17 08:01 21yo G1 EDC 08/16/2017 39 2/7 weeks, A+, RI, GBS neg, Uneventful . History of Hodgkin lymphoma with Chemo, remission x2 yrs and Crohn disease. Functional Status: Reports: Pain Controlled, Tolerating Diet, Ambulating, Urinating - Review of Systems General: Reports: No Symptoms HEENT: Reports: No Symptoms Pulmonary: Reports: No Symptoms Cardiovascular: Reports: No Symptoms Gastrointestinal: Reports: No Symptoms Genitourinary: Reports: No Symptoms Musculoskeletal: Reports: No Symptoms Skin: Reports: No Symptoms Neurological: Reports: No Symptoms Psychiatric: Reports: No Symptoms - Patient Data Vitals - Most Recent: Last Vital Signs Temp 36.6 C 08/13/17 05:00 Pulse 69 08/13/17 05:00 Resp 18 08/13/17 05:00 BP 111/64 08/13/17 05:00 Pulse Ox 98 08/13/17 05:00 Weight - Most Recent: 47.6 kg Med Orders - Current: Current Medications Acetaminophen (Tylenol Extra Strength) 500 mg PO Q4H PRN PRN Reason: Pain Acetaminophen (Tylenol Extra Strength) 1,000 mg PO Q4H PRN PRN Reason: Pain Benzocaine/Menthol (Dermoplast Pain Relief 20%-0.5% [place]) 0 gm TOP ASDIRECTED PRN PRN Reason: Perineal Comfort Measure Last Admin: 08/12/17 00:48 Dose: 1 can Bisacodyl (Dulcolax) 10 mg RECTAL .ONCE PRN PRN Reason: Constipation Docusate Sodium (Colace) 100 mg PO BID PRN PRN Reason: Constipation Last Admin: 08/12/17 13:53 Dose: 100 mg Emollient Ointment (Lansinoh Hpa) 0 gm TOP ASDIRECTED PRN PRN Reason: Sore Nipples Last Admin: 08/12/17 00:48 Dose: 1 tube Ibuprofen (Motrin) 400 mg PO Q4H PRN PRN Reason: Pain Ibuprofen (Motrin) 800 mg PO Q6H PRN PRN Reason: Pain Last Admin: 08/12/17 13:53 Dose: 800 mg Oxycodone HCl (Oxycodone) 5 mg PO Q2H PRN PRN Reason: Pain Last Admin: 08/12/17 01:39 Dose: 5 mg Witch Polina (Tucks) 1 pad TOP ASDIRECTED PRN PRN Reason: comfort care Last Admin: 08/12/17 00:47 Dose: 1 tub Discontinued Medications Acetaminophen (Tylenol Extra Strength) 1,000 mg PO ONETIME ONE Stop: 08/11/17 20:28 Last Admin: 08/12/17 06:30 Dose: Not Given Bupivacaine HCl (Sensorcaine-Mpf 0.25%) Confirm Administered Dose 10 ml .ROUTE .STK-MED ONE Stop: 08/11/17 19:30 Last Admin: 08/11/17 23:43 Dose: Not Given Butorphanol Tartrate (Stadol) 1 mg IVPUSH Q1H PRN PRN Reason: Pain Carboprost Tromethamine (Hemabate Ds) 250 mcg IM ASDIRECTED PRN PRN Reason: Post Hemorrhage Fentanyl (Sublimaze) Confirm Administered Dose 100 mcg .ROUTE .[facility]-MED ONE Stop: 08/11/17 12:38 Last Admin: 08/11/17 23:42 Dose: Not Given Lactated Ringer's (Ringers, Lactated) 1,000 mls @ 150 mls/hr IV ASDIRECTED ALLIE Last Admin: 08/11/17 13:29 Dose: 999 mls/hr Oxytocin/Sodium Chloride (Oxytocin 30 Unit/500 Ml-Ns) 30 unit in 500 mls @ 500 mls/hr IV TITRATE ALLIE Oxytocin/Sodium Chloride (Oxytocin 30 Unit/500 Ml-Ns) 30 unit in 500 mls @ 2 mls/hr IV TITRATE ALLIE; 2 MUNITS/MIN PRN Reason: Protocol Last Titration: 08/11/17 21:38 Dose: 999 mls/hr Ropivacaine (Naropin 0.2%) Confirm Administered Dose 100 mls @ as directed .ROUTE .[facility]-MED ONE Stop: 08/11/17 12:38 Last Admin: 08/11/17 23:42 Dose: Not Given Ropivacaine (Naropin 0.2%) Confirm Administered Dose 100 mls @ as directed .ROUTE .[facility]-MED ONE Stop: 08/11/17 21:27 Last Admin: 08/11/17 23:43 Dose: Not Given Lidocaine HCl (Xylocaine 1%) 50 ml INJECT .ONCE PRN PRN Reason: Laceration repair Methylergonovine Maleate (Methergine) 0.2 mg IM ASDIRECTED PRN PRN Reason: Post Hemorrhage Misoprostol (Cytotec) 200 mcg PO .ONCE PRN PRN Reason: Post Hemorrhage Misoprostol (Cytotec) 25 mcg VAG .ONCE ALLIE Misoprostol (Cytotec) 25 mcg VAG Q4H PRN PRN Reason: Cervical Ripening Nalbuphine HCl (Nubain) 10 mg IVPUSH Q1H PRN PRN Reason: Pain (severe 7-10) Last Admin: 08/11/17 09:58 Dose: 10 mg Ondansetron HCl (Zofran) Confirm Administered Dose 4 mg .ROUTE .STK-MED ONE Stop: 08/11/17 09:45 Last Admin: 08/11/17 09:58 Dose: 4 mg Phenylephrine HCl (Juan A-Synephrine) Confirm Administered Dose 10 mg .ROUTE .STK- MED ONE Stop: 08/11/17 13:34 Last Admin: 08/12/17 06:28 Dose: Not Given Sodium Chloride (Saline Flush) 10 ml FLUSH ASDIRECTED PRN PRN Reason: Keep Vein Open Sodium Chloride (Saline Flush) 2.5 ml FLUSH ASDIRECTED PRN PRN Reason: Keep Vein Open Sterile Water (Sterile Water For Irrigation) 1,000 ml IRR ASDIRECTED PRN PRN Reason: delivery Terbutaline Sulfate (Brethine) 0.25 mg SUBCUT ASDIRECTED PRN PRN Reason: Tacysystole Last Admin: 08/11/17 13:15 Dose: 0.25 mg - Exam General: Reports: Alert, Cooperative, No Acute Distress Lungs: Reports: Normal Respiratory Effort GI/Abdominal Exam: Soft, Non-Tender, No Distention (Female) Exam: Vaginal Bleeding Rectal (Female) Exam: Deferred Back Exam: Reports: Full Range of Motion Extremities: Normal Range of Motion, Non-Tender, No Pedal Edema, Normal Capillary Refill Skin: Reports: Warm, Dry, Intact Wound/Incisions: Reports: Healing Well Neurological: Reports: No New Focal Deficit, Normal Speech, Normal Tone Psy/Mental Status: Reports: Alert, Normal Affect, Normal Mood *Q Meaningful Use (DIS) - VTE *Q VTE Criteria *Q: - Stroke *Q Stroke Criteria *Q: - AMI *Q AMI Criteria *Q:
[2017-08-13] MEDS ORDERED: FLU Vacc QS 2017-18 (36mos UP)/PF 60 MCG/0.5 ML Syringe IM ONE (09:30)
[2017-08-13 10:03] VITALS: BP 103/68
== END 2017-08-13 09:45 | disposition home or self-care (01) | DRG 560 ==
LOC: MW.OBCHECK 04:52 → MW.OB 04:58 → MW.OBCHECK 05:41 → MW.OB 05:41 → OBSVTOIN 21:53
PROVIDERS: ADMIT Obstetrics & Gynecology; ATTEND Obstetrics & Gynecology
PROC: 10E0XZZ Delivery of Products of Conception, External Approach (ICD-10-PCS; principal; 2017-08-11)
PROC: 3E033VJ Introduction of Other Hormone into Peripheral Vein, Percutaneous Approach (ICD-10-PCS; 2017-08-11)
DX: O42.02 Full-term premature rupture of membranes, onset of labor within 24 hours of rupture (principal); O69.1XX0 Labor and delivery complicated by cord around neck, with compression, not applicable or unspecified; O99.62 Diseases of the digestive system complicating childbirth; Z3A.39 39 weeks gestation of pregnancy; Z37.0 Single live birth; Z85.72 Personal history of non-Hodgkin lymphomas
CPT/HCPCS: 01967; 01996; 36415; 59025; 59409; 84112; 85027; 86850; 86900; 86901; 90471; 90686; A9270-GY; J2300; J2370; J2405; J2590; J2795; J3010; J3105; J7120

== ENCOUNTER 2021-02-19 12:21 | Emergency (ER) | payer BC, OTHER, SELFPAY ==
--- NOTE | 2021-02-19 12:23 | EDM.PDOC ---
ED HPI GENERAL MEDICAL PROBLEM - General Stated Complaint: unk Time Seen by Provider: 02/19/21 12:22 History Limitations: Reports: No Limitations - History of Present Illness INITIAL COMMENTS - FREE TEXT/NARRATIVE: 25 yo female past medical history Crohn's disease presents for nausea, vomiting, abdominal pain, diarrhea. Patient has noted symptoms for the last few days. She states that her Crohn's disease is usually well managed. She receives care here in town. Denies bloody stool or blood in her vomitus. Notes generalized abdominal cramping pain. No urinary symptoms. No fevers. Abdomen Pain Score (Numeric/FACES): 10 - Related Data Allergies Allergy/AdvReac Type Severity Reaction Status Date / Time amoxicillin [From Augmentin] Allergy Cannot Verified 02/19/21 12:36 Remember clavulanic acid Allergy Cannot Verified 02/19/21 12:36 [From Augmentin] Remember Home Meds: Home Meds Acetaminophen/oxyCODONE [Percocet 325-5 MG] 1 each PO Q4H PRN #18 tab 02/19/21 [Rx] Ciprofloxacin [Ciprofloxacin HCl] 500 mg PO DAILY 7 Days #7 tab 02/19/21 [Rx] Vedolizumab [Entyvio] 1 dose IV ASDIRECTED 02/19/21 [History] metroNIDAZOLE [Flagyl] 500 mg PO Q8H 7 Days #21 tab 02/19/21 [Rx] predniSONE [Prednisone] 20 mg PO ASDIRECTED #21 tablet 02/19/21 [Rx] Past Medical History HEENT History: Reports: None Cardiovascular History: Reports: None Respiratory History: Reports: None Gastrointestinal History: Reports: Other (See Below) Other Gastrointestinal History: crohns Genitourinary History: Reports: None CHART WRITER History: Reports: None Musculoskeletal History: Reports: None Neurological History: Reports: None Psychiatric History: Reports: None Endocrine/Metabolic History: Reports: None Hematologic History: Reports: None Immunologic History: Reports: None Oncologic (Cancer) History: Reports: Hodgkin's Lymphoma (remission x 2 years) Dermatologic History: Reports: None - Infectious Disease History Infectious Disease History: Reports: None - Past Surgical History HEENT Surgical History: Reports: None Cardiovascular Surgical History: Reports: None Musculoskeletal Surgical History: Reports: None Oncologic Surgical History: Reports: Bone Marrow Aspiration, Bone Marrow Transplant, Other (See Below) Other Oncologic Surgeries/Procedures: tube in back Social & Family History - Family History Family Medical History: No Pertinent Family History - Caffeine Use Caffeine Use: Reports: Coffee, Energy Drinks, Soda ED ROS GENERAL - Review of Systems Review Of Systems: Comprehensive ROS is negative, except as noted in HPI. ED EXAM, GENERAL - Physical Exam Exam: See Below Exam Limited By: No Limitations General Appearance: Alert, WD/WN, No Apparent Distress Throat/Mouth: Normal Voice, No Airway Compromise Neck: Normal Inspection Respiratory/Chest: No Respiratory Distress, Lungs Clear, Normal Breath Sounds, No Accessory Muscle Use Cardiovascular: Normal Peripheral Pulses, Regular Rate, Rhythm GI/Abdominal: Soft, Non-Tender Extremities: Normal Inspection Neurological: Alert, Normal Gait Psychiatric: Normal Affect, Normal Mood Skin Exam: Warm, Dry, Intact, Normal Color Course - Vital Signs Last Recorded V/S: Last Vital Signs Temp 97.3 F 02/19/21 12:34 Pulse 100 02/19/21 12:34 Resp 18 02/19/21 12:34 BP 109/81 02/19/21 12:34 Pulse Ox 96 02/19/21 12:34 - Orders/Labs/Meds Orders: Active Orders 24 hr Category Date Time Status Sodium Chloride 0.9% [Saline Flush] Med 02/19/21 12:36 Active 10 ml FLUSH ASDIRECTED PRN Sodium Chloride 0.9% [Saline Flush] Med 02/19/21 12:36 Active 2.5 ml FLUSH ASDIRECTED PRN Saline Lock Insert [OM.PC] Stat Oth 02/19/21 12:36 Ordered Medication Orders Sodium Chloride (Sodium Chloride 0.9% 10 Ml Syringe) 10 ml FLUSH ASDIRECTED PRN PRN Reason: Keep Vein Open Last Admin: 02/19/21 12:48 Dose: 10 ml Documented by: [id number] Sodium Chloride (Sodium Chloride 0.9% 2.5 Ml Syringe) 2.5 ml FLUSH ASDIRECTED PRN PRN Reason: Keep Vein Open Last Admin: 02/19/21 12:48 Dose: 2.5 ml Documented by: [email or web address] Labs: Laboratory Tests 02/19/21 02/19/21 02/19/21 Range/Units 12:41 12:41 12:55 WBC 9.38 (4.0-11.0) K/uL RBC 4.79 (4.30-5.90) M/uL Hgb 14.1 (12.0-16.0) g/dL Hct 41.4 (36.0-46.0) % MCV 86.4 (80.0-98.0) fL MCH 29.4 (27.0-32.0) pg MCHC 34.1 (31.0-37.0) g/dL RDW Std Deviation 39.1 (28.0-62.0) fl RDW Coeff of Pallavi 13 (11.0-15.0) % Plt Count 349 (150-400) K/uL MPV 9.30 (7.40-12.00) fL Neut % (Auto) 74.2 (48.0-80.0) % Lymph % (Auto) 16.8 (16.0-40.0) % [place] % (Auto) 7.4 (0.0-15.0) % Eos % (Auto) 1.3 (0.0-7.0) % Baso % (Auto) 0.3 (0.0-1.5) % Neut # (Auto) 7.0 H (1.4-5.7) K/uL Lymph # (Auto) 1.6 (0.6-2.4) K/uL [place] # (Auto) 0.7 (0.0-0.8) K/uL Eos # (Auto) 0.1 (0.0-0.7) K/uL Baso # (Auto) 0.0 (0.0-0.1) K/uL Lactate (0.20-2.00) mmol/L Sodium (136-145) mmol/L Potassium (3.5-5.1) mmol/L Chloride (98-107) mmol/L Carbon Dioxide (21.0-32.0) mmol/L BUN (7.0-18.0) mg/dL Creatinine (0.6-1.0) mg/dL Est Cr Clr Drug Dosing mL/min Estimated GFR (MDRD) ml/min Glucose (74-106) mg/dL Calcium (8.5-10.1) mg/dL Magnesium (1.8-2.4) mg/dL Total Bilirubin (0.2-1.0) mg/dL AST (15-37) IU/L ALT (14-63) IU/L Alkaline Phosphatase (46-116) U/L Total Protein (6.4-8.2) g/dL Albumin (3.4-5.0) g/dL Globulin (2.6-4.0) g/dL Albumin/Globulin Ratio (0.9-1.6) Lipase (73-393) U/L Urine Color DARK YELLOW Urine Appearance CLEAR Urine pH 6.0 (5.0-8.0) Ur Specific [place] 1.025 (1.001-1.035) Urine Protein NEGATIVE (NEGATIVE) mg/dL Urine Glucose (UA) NEGATIVE (NEGATIVE) mg/dL Urine Ketones TRACE H (NEGATIVE) mg/dL Urine Occult Blood NEGATIVE (NEGATIVE) Urine Nitrite NEGATIVE (NEGATIVE) Urine Bilirubin SMALL H (NEGATIVE) Urine Ictotest NEGATIVE Urine Urobilinogen 1.0 (<2.0) EU/dL Ur Leukocyte Esterase NEGATIVE (NEGATIVE) Urine HCG, Qual NEGATIVE (NEGATIVE) 02/19/21 02/19/21 Range/Units 12:55 12:55 WBC (4.0-11.0) K/uL RBC (4.30-5.90) M/uL Hgb (12.0-16.0) g/dL Hct (36.0-46.0) % MCV (80.0-98.0) fL MCH (27.0-32.0) pg MCHC (31.0-37.0) g/dL RDW Std Deviation (28.0-62.0) fl RDW Coeff of Pallavi (11.0-15.0) % Plt Count (150-400) K/uL MPV (7.40-12.00) fL Neut % (Auto) (48.0-80.0) % Lymph % (Auto) (16.0-40.0) % [place] % (Auto) (0.0-15.0) % Eos % (Auto) (0.0-7.0) % Baso % (Auto) (0.0-1.5) % Neut # (Auto) (1.4-5.7) K/uL Lymph # (Auto) (0.6-2.4) K/uL [place] # (Auto) (0.0-0.8) K/uL Eos # (Auto) (0.0-0.7) K/uL Baso # (Auto) (0.0-0.1) K/uL Lactate 0.8 (0.20-2.00) mmol/L Sodium 138 (136-145) mmol/L Potassium 3.2 L (3.5-5.1) mmol/L Chloride 105 (98-107) mmol/L Carbon Dioxide 23.6 (21.0-32.0) mmol/L BUN 9 (7.0-18.0) mg/dL Creatinine 0.8 (0.6-1.0) mg/dL Est Cr Clr Drug Dosing 93.64 mL/min Estimated GFR (MDRD) > 60.0 ml/min Glucose 98 (74-106) mg/dL Calcium 8.2 L (8.5-10.1) mg/dL Magnesium 2.2 (1.8-2.4) mg/dL Total Bilirubin 0.5 (0.2-1.0) mg/dL AST 15 (15-37) IU/L ALT 18 (14-63) IU/L Alkaline Phosphatase 84 (46-116) U/L Total Protein 7.2 (6.4-8.2) g/dL Albumin 3.2 L (3.4-5.0) g/dL Globulin 4.0 (2.6-4.0) g/dL Albumin/Globulin Ratio 0.8 L (0.9-1.6) Lipase 140 (73-393) U/L Urine Color Urine Appearance Urine pH (5.0-8.0) Ur Specific [place] (1.001-1.035) Urine Protein (NEGATIVE) mg/dL Urine Glucose (UA) (NEGATIVE) mg/dL Urine Ketones (NEGATIVE) mg/dL Urine Occult Blood (NEGATIVE) Urine Nitrite (NEGATIVE) Urine Bilirubin (NEGATIVE) Urine Ictotest Urine Urobilinogen (<2.0) EU/dL Ur Leukocyte Esterase (NEGATIVE) Urine HCG, Qual (NEGATIVE) Meds: Medications Generic Name Dose Route Start Last Admin Trade Name Freq PRN Reason Stop Dose Admin Sodium Chloride 10 ml 02/19/21 12:36 02/19/21 12:48 Sodium Chloride 0.9% 10 Ml Syringe FLUSH 10 ml ASDIRECTED PRN Administration Keep Vein Open Sodium Chloride 2.5 ml 02/19/21 12:36 02/19/21 12:48 Sodium Chloride 0.9% 2.5 Ml Syringe FLUSH 2.5 ml ASDIRECTED PRN Administration Keep Vein Open Discontinued Medications Generic Name Dose Route Start Last Admin Trade Name Matthew PRN Reason Stop Dose Admin Sodium Chloride 1,000 mls @ 999 mls/hr 02/19/21 12:36 02/19/21 12:47 Normal Saline IV 02/19/21 13:36 999 mls/hr .Bolus ONE Administration Ciprofloxacin/Dextrose 400 mg/ 200 mls @ 200 mls/hr 02/19/21 12:38 02/19/21 12:48 Premix IV 02/19/21 13:37 200 mls/hr STAT STA Administration Metronidazole 500 mg/ Premix 100 mls @ 100 mls/hr 02/19/21 12:38 02/19/21 12:48 IV 02/19/21 13:37 100 mls/hr ONETIME ONE Administration Morphine Sulfate 4 mg 02/19/21 12:36 02/19/21 12:47 Morphine 4 Mg/Ml Syringe IVPUSH 02/19/21 12:37 4 mg ONETIME ONE Administration Ondansetron HCl 4 mg 02/19/21 12:36 02/19/21 12:47 Ondansetron 4 Mg/2 Ml Sdv IVPUSH 02/19/21 12:37 4 mg ONETIME ONE Administration - Re-Assessments/Exams Free Text/Narrative Re-Assessment/Exam: 02/19/21 13:48 Labs are grossly unremarkable aside from mild hyperkalemia. Will discharge with Percocet, prednisone, Flagyl, Cipro. Recommend follow-up with primary care physician within the next week for reassessment. Return precautions were discussed at length. Departure - Departure Time of Disposition: 13:48 Disposition: Home, Self-Care 01 Condition: Good Clinical Impression: Acute Crohn's disease Qualifiers: Digestive disease complication type: without complication Qualified Code(s): K50.90 - Crohn's disease, unspecified, without complications - Discharge Information Prescriptions: Ciprofloxacin [Ciprofloxacin HCl] 500 mg PO DAILY 7 Days #7 tab metroNIDAZOLE [Flagyl] 500 mg PO Q8H 7 Days #21 tab Acetaminophen/oxyCODONE [Percocet 325-5 MG] 1 each PO Q4H PRN #18 tab PRN Reason: Pain predniSONE [Prednisone] 20 mg PO ASDIRECTED #21 tablet Referrals: Mely Nuñez, ORALIA [Primary Care Provider] - Additional Instructions: Please follow-up with your primary care provider within the next week for reassessment. You have been prescribed prednisone for the next 2 weeks to help with your Crohn's flare. You are also given a prescription for ciprofloxacin and Flagyl which are antibiotics in case there is underlying infection. You were also given a prescription for Percocet which is a pain medication. If your pain is worsening or you develop any new or concerning symptoms you are encouraged to return to the emergency department for reassessment. The following information is given to patients seen in the emergency department who are being discharged to home. This information is to outline your options for follow-up care. We provide all patients seen in our emergency department with a follow-up referral. The need for follow-up, as well as the timing and circumstances, are variable depending upon the specifics of your emergency department visit. If you don't have a primary care physician on staff, we will provide you with a referral. We always advise you to contact your personal physician following an emergency department visit to inform them of the circumstance of the visit and for follow-up with them and/or the need for any referrals to a consulting specialist. The emergency department will also refer you to a specialist when appropriate. This referral assures that you have the opportunity for follow-up care with a specialist. All of these measure are taken in an effort to provide you with optimal care, which includes your follow-up. Under all circumstances we always encourage you to contact your private physician who remains a resource for coordinating your care. When calling for follow-up care, please make the office aware that this follow-up is from your recent emergency room visit. If for any reason you are refused follow-up, please contact the [facility] Emergency Department at and asked to speak to the emergency department charge nurse. Please follow up with your primary care physician. If you do not have a primary care physician, see below: [facility] [address] [place] [id number] [facility] [address] [place] [address] [facility] [address] [place] [id number] Sepsis Event Note (ED) - Focused Exam Vital Signs: Vital Signs Temp Pulse Resp BP Pulse Ox 02/19/21 12:34 97.3 F 100 18 109/81 96 - My Orders Last 24 Hours: My Active Orders 02/19/21 12:36 Sodium Chloride 0.9% [Saline Flush] 10 ml FLUSH ASDIRECTED PRN Sodium Chloride 0.9% [Saline Flush] 2.5 ml FLUSH ASDIRECTED PRN Saline Lock Insert [OM.PC] Stat - Assessment/Plan Last 24 Hours: My Active Orders 02/19/21 12:36 Sodium Chloride 0.9% [Saline Flush] 10 ml FLUSH ASDIRECTED PRN Sodium Chloride 0.9% [Saline Flush] 2.5 ml FLUSH ASDIRECTED PRN Saline Lock Insert [OM.PC] Stat
[2021-02-19] MEDS ORDERED: Ondansetron 4 MG/2 ML SDV IVPUSH ONE (12:36)
[2021-02-19] MEDS ORDERED: Sodium Chloride 0.9% 10 ML Syringe FLUSH PRN (12:36)
[2021-02-19] MEDS ORDERED: Sodium Chloride 0.9% 2.5 ML Syringe FLUSH PRN (12:36)
[2021-02-19] MEDS ORDERED: Sodium Chloride 0.9% 1,000 ML IV ONE (12:36)
[2021-02-19] MEDS ORDERED: Morphine 4 MG/ML Syringe IVPUSH ONE (12:36)
[2021-02-19] MEDS ORDERED: Ciprofloxacin in D5W 400 MG in Premix Bag 1 BAG IV STA ×2 (12:38)
[2021-02-19] MEDS ORDERED: metroNIDAZOLE/Normal Saline 500 MG in Premix Bag 1 BAG IV ONE (12:38)
[2021-02-19 13:38] LABS: BLOOD UREA NITROGEN,BUN 9 mg/dL (7.0-18.0); CARBON DIOXIDE,CO2 23.6 mmol/L (21.0-32.0); CHLORIDE,CL 105 mmol/L (98-107); GLUCOSE RANDOM 98 mg/dL (74-106); LIPASE 140 U/L (73-393); POTASSIUM,K 3.2 mmol/L (3.5-5.1); SODIUM,NA 138 mmol/L (136-145)
[2021-02-19 14:59] VITALS: BP 95/64; PULSE 91
== END 2021-02-19 14:59 | disposition home or self-care (01) ==
LOC: MW.ED 12:21
DX: K50.90 Crohn's disease, unspecified, without complications (principal); Z88.0 Allergy status to penicillin; Z88.1 Allergy status to other antibiotic agents; Z79.899 Other long term (current) drug therapy
CPT/HCPCS: 36415; 80053; 81003; 81025; 83605; 83690; 83735; 85025; 96365; 96375; 99284; J0744; J2270; J2405; J3490; J7030; 99283

== ENCOUNTER 2021-08-01 16:23 | Emergency (ER) | payer BC, SELFPAY ==
[2021-08-01] MEDS ORDERED: Ibuprofen 600 MG Tab PO ONE (16:53)
[2021-08-01] MEDS ORDERED: Acetaminophen 500 MG Tab PO ONE (16:53)
[2021-08-01] MEDS ORDERED: Lactated Ringers 1,000 ML IV SCH (17:00)
--- NOTE | 2021-08-01 17:05 | EDM.PDOC ---
<Nathaniel Saul - Last Filed: 08/01/21 19:05> ED HPI GENERAL MEDICAL PROBLEM - General Chief Complaint: Fever Stated Complaint: RUNNING HIGH FEVER Time Seen by Provider: 08/01/21 16:49 - History of Present Illness INITIAL COMMENTS - FREE TEXT/NARRATIVE: CHIEF COMPLAINT(S): Fever HISTORY OF PRESENT ILLNESS: This is a 25-year-old man with a past medical history of Crohn's disease and prior history of Hodgkin's lymphoma who comes to the emergency department with a chief complaint of fever. The patient states that for approximately 14 hours she has been experiencing a fever. She says the max was 102.7. She states that she has some associated headache and total body aches. She denies any runny nose, congestion, sore throat. She denies any neck stiffness or neck pain. She denies any numbness, tingling, or weakness. She states that she just does not feel well and anytime she feels dizzy she starts to throw up. She denies any abdominal pain, melena, hematochezia, hematemesis or bilious emesis. She denies any recent travel, recent surgery, prior history of DVT or PE. She denies any sick contacts. She states that she has not vaccinated against Covid. She states that she has not been exposed to Covid. She states that she mainly gets headaches all the time and this is similar to all of her headaches. She describes as bifrontal not associated with any blurry vision, loss of vision, numbness, tingling, weakness. There are no aggravating or relieving factors. She has not yet tried anything for pain medication. In addition she states that every time her hip gets dislocated she gets a fever. She states that she just recently dislocated it but it back in now. She states that she is never had a fever this high. REVIEW OF SYSTEMS: Constitutional: Positive for fever Eyes: Denies eye pain Ears, Nose, Mouth, & Throat: Denies earache Cardiovascular: Denies chest pain Respiratory: Denies shortness of breath Gastrointestinal: Denies Nausea, vomiting, diarrhea, hematochezia. Genitourinary: Denies hematuria Skin:Denies a rash MSK: Positive for body aches Neurological: Positive for headache. Denies blurred vision, numbness, tingling, weakness, trouble walking, speaking or swallowing. Psychiatric: Denies depression PAST MEDICAL HISTORY: As per history of present illness and as reviewed below otherwise noncontributory. SURGICAL HISTORY: As per history of present illness and as reviewed below otherwise noncontributory. SOCIAL HISTORY: As per history of present illness and as reviewed below otherwise noncontributory. FAMILY HISTORY: As per history of present illness and as reviewed below otherwise noncontributory. EXAMINATION OF ORGAN SYSTEMS/BODY AREAS: Constitutional: Blood pressure was 111/72, heart rate 134, respiratory rate 20 with an oxygen saturation 96% on room air. Temperature 39.1 General: Young woman who does not appear to be in acute distress Psychiatric: Appropriate mood and affect. Eyes: No scleral icterus or conjunctival erythema ENMT: Moist mucous membranes. No pharyngeal erythema Cardiovascular: Tachycardic but regular. No gallops, murmurs, or rubs. Bilateral upper extremity pulses symmetric and intact. No peripheral edema. No JVD. Respiratory: Lungs clear to auscultation bilaterally. No wheezes, rales, or rhonchi. Gastrointestinal: Soft, non-tender, non-distended. Normoactive bowel sounds Genitourinary: No suprapubic tenderness Musculoskeletal: Normal range of motion. Negative for any meningeal signs. Skin: No lesions or abrasions. Neurological: Alert, GCS 15 strength and sensation grossly intact in upper and lower extremity bilaterally. MEDICAL DECISION MAKING AND COURSE IN THE ED WITH INTERPRETATION/REVIEW OF DIAGNOSTIC STUDIES: This is a 25-year-old with a past medical history of Crohn's disease and prior history of Hodgkin's lymphoma who comes to the emergency department with fever with headache and associated body aches. At this time I do suspect the possibility of viral etiology. We will obtain laboratory work-up including septic work-up including blood cultures, lactic acid, CBC, CMP, INR. We will provide the patient with 1 L of lactated Ringer's bolus. We will reevaluate after lactic acid for additional need for 30 cc/kg bolus however the patient's blood pressure is normal at this time. We will hold off on antibiotic administration as I do believe this is possibly a viral etiology. We will provide the patient with Tylenol and Motrin for antipyretic relief and pain relief. Will obtain an EKG given the tachycardia. Will obtain Covid, RSV and influenza swabs. Will obtain a chest x-ray and urinalysis to evaluate for sources of fever. Laboratory: CBC does not show any leukocytosis with increased neutrophilic per percentage at 88.6% and lymphopenia. INR is normal. CMP is unremarkable. Lactic acid is normal. Covid, influenza, RSV negative. Urinalysis is negative but did show ketonuria. This indicates some dehydration. The radiological images were viewed by myself along with reading the report from the radiologist. Chest x-ray does not reveal any acute cardiopulmonary process. After labs and imaging I did reevaluate the patient. At this time her heart rate had significantly improved, her fever had resolved. She states that she was feeling better. At this time I do not have a source for her fever. We did obtain ESR which was 7.9 and CRP. Given the possible hip dislocation that was reduced this morning by her significant other we will obtain a hip x-ray. There is no pain with passive or active motion. The patient is ambulate without any difficulty. DISPOSITION: [facility] [place] [place] [facility] pending hip x-ray and final disposition CONDITION: Fair PROCEDURES: None FINAL IMPRESSION(S)/DIAGNOSES: 1. Acute fever 2. Possible right hip dislocation status post reduction Nathaniel Saul M.D. Headache Pain Score (Numeric/FACES): 8 - Related Data Allergies Allergy/AdvReac Type Severity Reaction Status Date / Time amoxicillin [From Augmentin] Allergy Cannot Verified 08/01/21 16:51 Remember clavulanic acid Allergy Cannot Verified 08/01/21 16:51 [From Augmentin] Remember Home Meds: Home Meds Vedolizumab [Entyvio] 1 dose IV ASDIRECTED 02/19/21 [History] Ciprofloxacin [Ciprofloxacin HCl] 500 mg PO BID #20 tab 08/01/21 [Rx] metroNIDAZOLE [Flagyl] 500 mg PO Q8H #30 tab 08/01/21 [Rx] Past Medical History HEENT History: Reports: None Cardiovascular History: Reports: None Respiratory History: Reports: None Gastrointestinal History: Reports: Other (See Below) Other Gastrointestinal History: crohns Genitourinary History: Reports: None LINING 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 History: Reports: None Musculoskeletal History: Reports: None Neurological History: Reports: None Psychiatric History: Reports: None Endocrine/Metabolic History: Reports: None Hematologic History: Reports: None Immunologic History: Reports: None Oncologic (Cancer) History: Reports: Hodgkin's Lymphoma Dermatologic History: Reports: None - Infectious Disease History Infectious Disease History: Reports: None - Past Surgical History Head Surgeries/Procedures: Reports: None HEENT Surgical History: Reports: None Cardiovascular Surgical History: Reports: None GI Surgical History: Reports: None Female Surgical History: Reports: None Neurological Surgical History: Reports: None Musculoskeletal Surgical History: Reports: None Oncologic Surgical History: Reports: Bone Marrow Aspiration, Bone Marrow Transplant, Other (See Below) Other Oncologic Surgeries/Procedures: tube in back Dermatological Surgical History: Reports: None Social & Family History - Family History Family Medical History: No Pertinent Family History - Tobacco Use Tobacco Use Status *Q: Never Tobacco User - Caffeine Use Caffeine Use: Reports: None - Recreational Drug Use Recreational Drug Use: No ED ROS GENERAL - Review of Systems Review Of Systems: See Below ED EXAM, GENERAL - Physical Exam Exam: See Below Departure - Departure Disposition: Against Medical Advice 07 Clinical Impression: Crohn's colitis, Left against medical advice, Sepsis - Discharge Information Prescriptions: Ciprofloxacin [Ciprofloxacin HCl] 500 mg PO BID #20 tab metroNIDAZOLE [Flagyl] 500 mg PO Q8H #30 tab Instructions: Colitis, Sepsis, Diagnosis, Adult Referrals: PCP,None [Primary Care Provider] - Forms: ED Department Discharge Additional Instructions: You chose to sign out AGAINST MEDICAL ADVICE. The need for follow-up, as well as the timing and circumstances, are variable depending upon the specifics of your emergency department visit. If you don't have a primary care physician on staff, we will provide you with a referral. We always advise you to contact your personal physician following an emergency department visit to inform them of the circumstance of the visit and for follow-up with them and/or the need for any referrals to a consulting specialist. The emergency department will also refer you to a specialist when appropriate. This referral assures that you have the opportunity for follow-up care with a specialist. All of these measure are taken in an effort to provide you with optimal care, which includes your follow-up. Under all circumstances we always encourage you to contact your private physician who remains a resource for coordinating your care. When calling for follow-up care, please make the office aware that this follow-up is from your recent emergency room visit. If for any reason you are refused follow-up, please contact the [facility] Emergency Department at and asked to speak to the emergency department charge nurse. If you do not have a primary care doctor, please follow up with the clinics below within 3-5 days. [facility] [address] [place] [id number] [facility] [address] [place] [id number] Sepsis Event Note (ED) - Evaluation Sepsis Screening Result: Possible Sepsis Risk <Han Taylor - Last Filed: 08/01/21 23:25> #1 Interpretation EKG Interpretation Comments: Heart rate = 102bpm, sinus tachycardia, normal QRS interval, no STEMI. EKG and rhythm strip interpreted by me at 1812 Course - Vital Signs Last Recorded V/S: Last Vital Signs Temp 98.7 F 08/01/21 19:13 Pulse 91 08/01/21 19:50 Resp 16 08/01/21 19:50 BP 98/64 08/01/21 19:50 Pulse Ox 98 08/01/21 19:50 - Orders/Labs/Meds Orders: Active Orders 24 hr Category Date Time Status C DIFFICILE AG/TOXIN W/REFLEX [RM] Stat Lab 08/01/21 22:59 Ordered CULTURE BLOOD [BC] Stat Lab 08/01/21 17:10 Received CULTURE BLOOD [BC] Stat Lab 08/01/21 17:17 Received PROCALCITONIN [REF] Stat Lab 08/01/21 20:25 Received STOOL CULTURE/SHIGA TOXIN [MREF] Stat Lab 08/01/21 22:59 Ordered Lactated Ringers [Ringers, Lactated] 1,000 ml Med 08/01/21 17:00 Active IV ASDIRECTED Blood Culture x2 Reflex Set [OM.PC] Stat Oth 08/01/21 17:07 Ordered Medication Orders Lactated Ringer's (Ringers, Lactated) 1,000 mls @ 999 mls/hr IV ASDIRECTED ALLIE Last Admin: 08/01/21 17:09 Dose: 999 mls/hr Documented by: ALEX Labs: Laboratory Tests 08/01/21 08/01/21 08/01/21 Range/Units 16:51 17:00 17:10 WBC 7.36 (4.0-11.0) K/uL RBC 5.09 (4.30-5.90) M/uL Hgb 15.4 (12.0-16.0) g/dL Hct 43.4 (36.0-46.0) % MCV 85.3 (80.0-98.0) fL MCH 30.3 (27.0-32.0) pg MCHC 35.5 (31.0-37.0) g/dL RDW Std Deviation 39.6 (28.0-62.0) fl RDW Coeff of Pallavi 13 (11.0-15.0) % Plt Count 252 (150-400) K/uL MPV 9.60 (7.40-12.00) fL Neut % (Auto) 88.6 H (48.0-80.0) % Lymph % (Auto) 5.3 L (16.0-40.0) % Keith % (Auto) 5.8 (0.0-15.0) % Eos % (Auto) 0.0 (0.0-7.0) % Baso % (Auto) 0.3 (0.0-1.5) % Neut # (Auto) 6.5 H (1.4-5.7) K/uL Lymph # (Auto) 0.4 L (0.6-2.4) K/uL Keith # (Auto) 0.4 (0.0-0.8) K/uL Eos # (Auto) 0.0 (0.0-0.7) K/uL Baso # (Auto) 0.0 (0.0-0.1) K/uL Nucleated RBC % 0.0 /100WBC Nucleated RBCs # 0 K/uL ESR (0-19) mm/hr INR Sodium (136-145) mmol/L Potassium (3.5-5.1) mmol/L Chloride (98-107) mmol/L Carbon Dioxide (21.0-32.0) mmol/L BUN (7.0-18.0) mg/dL Creatinine (0.6-1.0) mg/dL Est Cr Clr Drug Dosing mL/min Estimated GFR (MDRD) ml/min Glucose (74-106) mg/dL Lactic Acid (0.4-2.0) mmol/L Calcium (8.5-10.1) mg/dL Ferritin (8-252) ng/mL Total Bilirubin (0.2-1.0) mg/dL AST (15-37) IU/L ALT (14-63) IU/L Alkaline Phosphatase (46-116) U/L Lactate Dehydrogenase (81-234) U/L Creatine Kinase (26-308) U/L Troponin I (0.000-0.056) ng/mL C-Reactive Protein 7.90 H (0.00-0.90) mg/dL Total Protein (6.4-8.2) g/dL Albumin (3.4-5.0) g/dL Globulin (2.6-4.0) g/dL Albumin/Globulin Ratio (0.9-1.6) Urine Color ORANGE Urine Appearance CLEAR Urine pH 7.0 (5.0-8.0) Ur Specific Bovill 1.025 (1.001-1.035) Urine Protein NEGATIVE (NEGATIVE) mg/dL Urine Glucose (UA) NEGATIVE (NEGATIVE) mg/dL Urine Ketones 15 H (NEGATIVE) mg/dL Urine Occult Blood NEGATIVE (NEGATIVE) Urine Nitrite NEGATIVE (NEGATIVE) Urine Bilirubin NEGATIVE (NEGATIVE) Urine Urobilinogen 0.2 (<2.0) EU/dL Ur Leukocyte Esterase NEGATIVE (NEGATIVE) Influenza Type A RNA (NEGATIVE) RSV RNA (INAAT) (NEGATIVE) Influenza Type B RNA (NEGATIVE) SARS-CoV-2 RNA (JOSSUE) (NEGATIVE) 08/01/21 08/01/21 08/01/21 Range/Units 17:10 17:10 17:10 WBC (4.0-11.0) K/uL RBC (4.30-5.90) M/uL Hgb (12.0-16.0) g/dL Hct (36.0-46.0) % MCV (80.0-98.0) fL MCH (27.0-32.0) pg MCHC (31.0-37.0) g/dL RDW Std Deviation (28.0-62.0) fl RDW Coeff of Pallavi (11.0-15.0) % Plt Count (150-400) K/uL MPV (7.40-12.00) fL Neut % (Auto) (48.0-80.0) % Lymph % (Auto) (16.0-40.0) % Keith % (Auto) (0.0-15.0) % Eos % (Auto) (0.0-7.0) % Baso % (Auto) (0.0-1.5) % Neut # (Auto) (1.4-5.7) K/uL Lymph # (Auto) (0.6-2.4) K/uL Keith # (Auto) (0.0-0.8) K/uL Eos # (Auto) (0.0-0.7) K/uL Baso # (Auto) (0.0-0.1) K/uL Nucleated RBC % /100WBC Nucleated RBCs # K/uL ESR (0-19) mm/hr INR 1.20 Sodium 139 (136-145) mmol/L Potassium 3.5 (3.5-5.1) mmol/L Chloride 104 (98-107) mmol/L Carbon Dioxide 23.6 (21.0-32.0) mmol/L BUN 6 L (7.0-18.0) mg/dL Creatinine 0.9 (0.6-1.0) mg/dL Est Cr Clr Drug Dosing 83.23 mL/min Estimated GFR (MDRD) > 60.0 ml/min Glucose 104 (74-106) mg/dL Lactic Acid 1.5 (0.4-2.0) mmol/L Calcium 9.3 (8.5-10.1) mg/dL Ferritin (8-252) ng/mL Total Bilirubin 0.9 (0.2-1.0) mg/dL AST 27 (15-37) IU/L ALT 36 (14-63) IU/L Alkaline Phosphatase 84 (46-116) U/L Lactate Dehydrogenase (81-234) U/L Creatine Kinase (26-308) U/L Troponin I (0.000-0.056) ng/mL C-Reactive Protein (0.00-0.90) mg/dL Total Protein 7.5 (6.4-8.2) g/dL Albumin 3.6 (3.4-5.0) g/dL Globulin 3.9 (2.6-4.0) g/dL Albumin/Globulin Ratio 0.9 (0.9-1.6) Urine Color Urine Appearance Urine pH (5.0-8.0) Ur Specific Bovill (1.001-1.035) Urine Protein (NEGATIVE) mg/dL Urine Glucose (UA) (NEGATIVE) mg/dL Urine Ketones (NEGATIVE) mg/dL Urine Occult Blood (NEGATIVE) Urine Nitrite (NEGATIVE) Urine Bilirubin (NEGATIVE) Urine Urobilinogen (<2.0) EU/dL Ur Leukocyte Esterase (NEGATIVE) Influenza Type A RNA (NEGATIVE) RSV RNA (INAAT) (NEGATIVE) Influenza Type B RNA (NEGATIVE) SARS-CoV-2 RNA (JOSSUE) (NEGATIVE) 08/01/21 08/01/21 08/01/21 Range/Units 17:10 17:10 17:10 WBC (4.0-11.0) K/uL RBC (4.30-5.90) M/uL Hgb (12.0-16.0) g/dL Hct (36.0-46.0) % MCV (80.0-98.0) fL MCH (27.0-32.0) pg MCHC (31.0-37.0) g/dL RDW Std Deviation (28.0-62.0) fl RDW Coeff of Pallavi (11.0-15.0) % Plt Count (150-400) K/uL MPV (7.40-12.00) fL Neut % (Auto) (48.0-80.0) % Lymph % (Auto) (16.0-40.0) % Keith % (Auto) (0.0-15.0) % Eos % (Auto) (0.0-7.0) % Baso % (Auto) (0.0-1.5) % Neut # (Auto) (1.4-5.7) K/uL Lymph # (Auto) (0.6-2.4) K/uL Keith # (Auto) (0.0-0.8) K/uL Eos # (Auto) (0.0-0.7) K/uL Baso # (Auto) (0.0-0.1) K/uL Nucleated RBC % /100WBC Nucleated RBCs # K/uL ESR 9 (0-19) mm/hr INR Sodium (136-145) mmol/L Potassium (3.5-5.1) mmol/L Chloride (98-107) mmol/L Carbon Dioxide (21.0-32.0) mmol/L BUN (7.0-18.0) mg/dL Creatinine (0.6-1.0) mg/dL Est Cr Clr Drug Dosing mL/min Estimated GFR (MDRD) ml/min Glucose (74-106) mg/dL Lactic Acid (0.4-2.0) mmol/L Calcium (8.5-10.1) mg/dL Ferritin (8-252) ng/mL Total Bilirubin (0.2-1.0) mg/dL AST (15-37) IU/L ALT (14-63) IU/L Alkaline Phosphatase (46-116) U/L Lactate Dehydrogenase 275 H (81-234) U/L Creatine Kinase 81 (26-308) U/L Troponin I < 0.050 (0.000-0.056) ng/mL C-Reactive Protein (0.00-0.90) mg/dL Total Protein (6.4-8.2) g/dL Albumin (3.4-5.0) g/dL Globulin (2.6-4.0) g/dL Albumin/Globulin Ratio (0.9-1.6) Urine Color Urine Appearance Urine pH (5.0-8.0) Ur Specific Bovill (1.001-1.035) Urine Protein (NEGATIVE) mg/dL Urine Glucose (UA) (NEGATIVE) mg/dL Urine Ketones (NEGATIVE) mg/dL Urine Occult Blood (NEGATIVE) Urine Nitrite (NEGATIVE) Urine Bilirubin (NEGATIVE) Urine Urobilinogen (<2.0) EU/dL Ur Leukocyte Esterase (NEGATIVE) Influenza Type A RNA NEGATIVE (NEGATIVE) RSV RNA (INAAT) NEGATIVE (NEGATIVE) Influenza Type B RNA NEGATIVE (NEGATIVE) SARS-CoV-2 RNA (JOSSUE) NEGATIVE (NEGATIVE) 08/01/21 Range/Units 17:10 WBC (4.0-11.0) K/uL RBC (4.30-5.90) M/uL Hgb (12.0-16.0) g/dL Hct (36.0-46.0) % MCV (80.0-98.0) fL MCH (27.0-32.0) pg MCHC (31.0-37.0) g/dL RDW Std Deviation (28.0-62.0) fl RDW Coeff of Pallavi (11.0-15.0) % Plt Count (150-400) K/uL MPV (7.40-12.00) fL Neut % (Auto) (48.0-80.0) % Lymph % (Auto) (16.0-40.0) % Keith % (Auto) (0.0-15.0) % Eos % (Auto) (0.0-7.0) % Baso % (Auto) (0.0-1.5) % Neut # (Auto) (1.4-5.7) K/uL Lymph # (Auto) (0.6-2.4) K/uL Keith # (Auto) (0.0-0.8) K/uL Eos # (Auto) (0.0-0.7) K/uL Baso # (Auto) (0.0-0.1) K/uL Nucleated RBC % /100WBC Nucleated RBCs # K/uL ESR (0-19) mm/hr INR Sodium (136-145) mmol/L Potassium (3.5-5.1) mmol/L Chloride (98-107) mmol/L Carbon Dioxide (21.0-32.0) mmol/L BUN (7.0-18.0) mg/dL Creatinine (0.6-1.0) mg/dL Est Cr Clr Drug Dosing mL/min Estimated GFR (MDRD) ml/min Glucose (74-106) mg/dL Lactic Acid (0.4-2.0) mmol/L Calcium (8.5-10.1) mg/dL Ferritin 109 (8-252) ng/mL Total Bilirubin (0.2-1.0) mg/dL AST (15-37) IU/L ALT (14-63) IU/L Alkaline Phosphatase (46-116) U/L Lactate Dehydrogenase (81-234) U/L Creatine Kinase (26-308) U/L Troponin I (0.000-0.056) ng/mL C-Reactive Protein (0.00-0.90) mg/dL Total Protein (6.4-8.2) g/dL Albumin (3.4-5.0) g/dL Globulin (2.6-4.0) g/dL Albumin/Globulin Ratio (0.9-1.6) Urine Color Urine Appearance Urine pH (5.0-8.0) Ur Specific Bovill (1.001-1.035) Urine Protein (NEGATIVE) mg/dL Urine Glucose (UA) (NEGATIVE) mg/dL Urine Ketones (NEGATIVE) mg/dL Urine Occult Blood (NEGATIVE) Urine Nitrite (NEGATIVE) Urine Bilirubin (NEGATIVE) Urine Urobilinogen (<2.0) EU/dL Ur Leukocyte Esterase (NEGATIVE) Influenza Type A RNA (NEGATIVE) RSV RNA (INAAT) (NEGATIVE) Influenza Type B RNA (NEGATIVE) SARS-CoV-2 RNA (JOSSUE) (NEGATIVE) Meds: Medications Generic Name Dose Route Start Last Admin Trade Name Freq PRN Reason Stop Dose Admin Lactated Ringer's 1,000 mls @ 999 mls/hr 08/01/21 17:00 08/01/21 17:09 Ringers, Lactated IV 999 mls/hr ASDIRECTED ALLIE Administration Discontinued Medications Generic Name Dose Route Start Last Admin Trade Name Freq PRN Reason Stop Dose Admin Acetaminophen 1,000 mg 08/01/21 16:53 08/01/21 17:08 Acetaminophen 500 Mg Tab PO 08/01/21 16:54 1,000 mg ONETIME ONE Administration Ceftriaxone Sodium 1 gm 08/01/21 19:51 08/01/21 20:12 Ceftriaxone 1 Gm Vial IVPUSH 08/01/21 19:52 1 gm ONETIME ONE Administration Sodium Chloride 1,000 mls @ 999 mls/hr 08/01/21 18:34 08/01/21 18:38 Normal Saline IV 08/01/21 19:34 999 mls/hr .Bolus ONE Administration Sterile Water Confirm 08/01/21 20:05 08/01/21 20:13 Sterile Water For Injection Administered 08/01/21 20:06 Not Given Dose 20 mls @ as directed .ROUTE .STK-MED ONE Ibuprofen 600 mg 08/01/21 16:53 08/01/21 17:08 Ibuprofen 600 Mg Tab PO 08/01/21 16:54 600 mg ONETIME ONE Administration Iopamidol 100 ml 08/01/21 19:47 08/01/21 20:13 Iopamidol 755 Mg/Ml 100 Ml Bottle IVPUSH 08/01/21 19:48 100 ml ONETIME ONE Administration Sterile Water 10 ml 08/01/21 20:06 08/01/21 20:12 Water For Injection, Sterile 20 Ml Sdv INJECT 08/01/21 20:07 10 ml ONETIME ONE Administration - Re-Assessments/Exams Free Text/Narrative Re-Assessment/Exam: 08/01/21 19:00 This patient was signed out to me from Dr. Saul at this time. I promptly performed a detailed physical examination, my examination was performed after ED treatments were initiated by the signout provider. Patient has been under the care of the previous provider up until this point. Patient is a 25-year-old female with history of Crohn's who presented today with fever, headache, right hip pain. She notes that last night she started noticing right hip pain where she was unable to bear weight. Pain was worse with range of motion where she would feel a pop. Her boyfriend popped her right hip and her pain improved. Today around 1 PM she started noticing fever of 102.7 T-max, bitemporal headache, dizziness, nausea, generalized malaise and myalgia. She denies neck pain or neck stiffness, sore throat, runny nose, cough, chest pain, rash, dysuria, back pain, vaginal discharge, vaginal bleeding, abdominal pain, vomiting, diarrhea. Prior to signout she received 2 L IV fluids and her blood pressure afterwards = 82/50 with a MAP = 60. My physical exam demonstrated intermittent clicking pain in the right hip with range of motion, no erythema swelling to the right hip. I do not suspect septic arthritis. She has no tenderness to her C/T/L-spine, doubt epidural abscess. Her abdomen is soft, diffusely nontender with no rebound or guarding. Doubt surgical abdomen. Cardiac exam demonstrated no murmur, no rash, doubt endocarditis or rheumatic fever. She has no Kernig's or Brudzinski's, her neck is supple. She was able to shake her head left and right violently with no complaints of pain. I do not suspect meningitis. She was tested negative for RSV/influenza a/B/Covid. 08/01/21 21:[address] Kennedy, he will assess patient at bedside. 08/01/21 23:00 Dr. Kennedy assessed the patient at bedside, she now states that she wants to sign out AGAINST MEDICAL ADVICE. She has a 3-year-old at home with no caregiver. She is choosing to leave against medical advice. I personally explained to the patient that choosing to do so may result in permanent bodily harm or . I discussed at great length that without further evaluation and monitoring there may be unforeseen circumstances and deterioration causing permanent bodily harm or as a result of their choice. The patient is alert, oriented, and competent at this time. The patient states that they are aware of the serious risks as explained, but they still choose to leave against medical advice. The patient is aware that they did not allow us to complete their evaluation, and there is still the possibility that an emergency condition could exist. This has been thoroughly explained to the patient and the patient has indicated your understanding of such. The patient is assuming all risk and liability for such a condition, or for such a condition subsequently developing. The patient is doing so at their own free will, with a full knowledge of the potential consequences of these actions. The patient was encouraged to return at any time should they experience any changes about evaluation, or should they develop any new or worsening symptoms that concerns them. Departure - Departure Time of Disposition: 23:24 Condition: Undetermined - Discharge Information *PRESCRIPTION DRUG MONITORING PROGRAM REVIEWED*: Not Applicable *COPY OF PRESCRIPTION DRUG MONITORING REPORT IN PATIENT TYE: Not Applicable Sepsis Event Note (ED) - Focused Exam Vital Signs: Vital Signs Temp Temp Pulse Resp BP Pulse Ox 08/01/21 19:50 91 16 98/64 98 08/01/21 19:13 98.7 F 102 H 18 85/50 L 98 08/01/21 18:33 97 94/57 L 96 08/01/21 18:08 99.6 F 08/01/21 17:38 99.6 F 08/01/21 17:08 102.4 F H 08/01/21 16:52 102.4 F H 134 H 20 111/72 96 - My Orders Last 24 Hours: My Active Orders 08/01/21 20:25 PROCALCITONIN [REF] Stat 08/01/21 22:59 C DIFFICILE AG/TOXIN W/REFLEX [RM] Stat STOOL CULTURE/SHIGA TOXIN [MREF] Stat - Assessment/Plan Last 24 Hours: My Active Orders 08/01/21 20:25 PROCALCITONIN [REF] Stat 08/01/21 22:59 C DIFFICILE AG/TOXIN W/REFLEX [RM] Stat STOOL CULTURE/SHIGA TOXIN [MREF] Stat
[2021-08-01 17:47] LABS: BLOOD UREA NITROGEN,BUN 6 mg/dL (7.0-18.0); CARBON DIOXIDE,CO2 23.6 mmol/L (21.0-32.0); CHLORIDE,CL 104 mmol/L (98-107); GLUCOSE RANDOM 104 mg/dL (74-106); POTASSIUM,K 3.5 mmol/L (3.5-5.1); SODIUM,NA 139 mmol/L (136-145)
[2021-08-01 18:04] LABS: CORONAVIRUS COVID-19 NAA NEGATIVE (NEGATIVE); INFLUENZA A NAA NEGATIVE (NEGATIVE); INFLUENZA B NAA NEGATIVE (NEGATIVE); RESPIRATORY SYNCYTIAL VIR NAA NEGATIVE (NEGATIVE)
--- NOTE | 2021-08-01 18:10 | CR ---
INDICATION: fever TECHNIQUE: Chest 1 view. COMPARISON: None. FINDINGS: Cardiovascular and mediastinum: Heart size and vasculature are normal in caliber and appearance. Mediastinum is within normal limits. Lungs and pleural space: Lungs are clear. No sign of infiltrate or mass. No sign of pleural effusion. No pneumothorax. Bones and soft tissues: No significant findings. IMPRESSION: Unremarkable chest. Dictated by: Darrin Phillip MD @ 08/01/2021 18:08:04 (Electronically Signed)
[2021-08-01] MEDS ORDERED: Sodium Chloride 0.9% 1,000 ML IV ONE (18:34)
--- NOTE | 2021-08-01 19:35 | PCM.EKG ---
#1 Interpretation EKG Date: 08/01/21 Time: 18:12 Rhythm: NSR Rate (Beats/Min): 102 Fidelity: Normal P-Wave: Present QRS: Normal ST-T: Normal QT: Normal Comparison: NA - No Prior EKG EKG Interpretation Comments: Sinus Tachycardia
[2021-08-01] MEDS ORDERED: Iopamidol 755 Mg/ML 100 ML Bottle IVPUSH ONE (19:47)
[2021-08-01 19:51] VITALS: BP 98/64; PULSE 91
[2021-08-01] MEDS ORDERED: cefTRIAXone 1 GM Vial IVPUSH ONE (19:51)
--- NOTE | 2021-08-01 19:58 | CR ---
INDICATION: Hip dislocation. TECHNIQUE: AP pelvis, AP and lateral views of the right hip. COMPARISON: None. IMPRESSION: No fracture is identified. The sacroiliac joints, pubic symphysis, and hip joints appear unremarkable. Specifically, there is no evidence of dislocation of the right hip. IUD is noted. Dictated by Farhat Lr MD @ 08/01/2021 7:56:11 PM Dictated by: Farhat Lr MD @ 08/01/2021 19:56:43 (Electronically Signed)
[2021-08-01] MEDS ORDERED: Water For Injection, Sterile 20 ML ONE (20:05)
[2021-08-01] MEDS ORDERED: Water For Injection, Sterile 20 ML SDV INJECT ONE (20:06)
--- NOTE | 2021-08-01 20:51 | CT ---
INDICATION: Fever. Headache. TECHNIQUE: Multiple axial images were obtained through the brain without contrast. Sagittal and coronal re-formatted images were obtained. COMPARISON: 11/16/2016. FINDINGS: The ventricles and sulci are within normal limits. There is no mass effect or midline shift. There is no intracranial hemorrhage. The galeano-white matter differentiation is unremarkable. There is no fracture seen on bone windows. There is mild thickening in the ethmoid air cells inferiorly. IMPRESSION: 1. No acute intracranial abnormality. 2. Mild sinus disease in the ethmoid air cells. Please note that all CT scans at this facility use dose modulation, iterative reconstruction, and/or weight-based dosing when appropriate to reduce radiation dose to as low as reasonably achievable. Dictated by Joshua Azar MD @ 08/01/2021 8:49:55 PM (Electronically Signed)
--- NOTE | 2021-08-01 21:12 | CT ---
INDICATION: Fever. Headache. History of lymphoma. TECHNIQUE: Multiple axial images were obtained from the iliac crest to the symphysis pubis after administration 100 mL radiopaque 370 intravenously. - Sagittal and coronal re-formatted images were obtained. COMPARISON: CT abdomen pelvis done 04/06/2018. FINDINGS: The appendix is visualized in the right lower quadrant and is unremarkable. There is thickening of the wall of the distal small bowel and terminal ileum which was also present on the previous CT scan. There is a mild stranding of the fat around distal small bowel and terminal ileum. There is the appearance of a track going from the ileum to the sigmoid colon. This is seen on images 25-28. This would be worrisome for a fistula. There are prominent lymph nodes in the visualized mesentery. There is a trace amount free fluid in the pelvis. There is an IUD in the uterus. IMPRESSION: Thickening of the wall of the distal small bowel and the terminal ileum with stranding adjacent fat consistent with a colitis as likely secondary to a Crohn`s disease. 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 Trace amount of free fluid in the pelvis. Please note that all CT scans at this facility use dose modulation, iterative reconstruction, and/or weight-based dosing when appropriate to reduce radiation dose to as low as reasonably achievable. Dictated by Joshua Azar MD @ 08/01/2021 9:09:59 PM (Electronically Signed)
== END 2021-08-01 23:27 | disposition left against medical advice (07) ==
LOC: MW.ED 16:23
DX: A41.9 Sepsis, unspecified organism (principal); K52.9 Noninfective gastroenteritis and colitis, unspecified; K50.90 Crohn's disease, unspecified, without complications; Z88.0 Allergy status to penicillin; Z20.822 Contact with and (suspected) exposure to COVID-19
CPT/HCPCS: 0241U; 36415; 70450; 71045; 72193; 73502; 80053; 81003; 82550; 82728; 83605; 83615; 84145; 84484; 85025; 85610; 85652; 86140; 87040; 93005; 96374; 99284; A9270; J0696; J7030; J7120; Q9967

== ENCOUNTER 2021-10-04 15:52 | Emergency (ER) | payer BC ==
[2021-10-04] MEDS ORDERED: Sodium Chloride 0.9% 2.5 ML Syringe FLUSH PRN (16:43)
[2021-10-04] MEDS ORDERED: Sodium Chloride 0.9% 10 ML Syringe FLUSH PRN (16:43)
[2021-10-04] MEDS ORDERED: HYDROmorphone 2 MG/ML Syringe IVPUSH ONE ×2 (16:48→19:24)
[2021-10-04] MEDS ORDERED: Ondansetron 4 MG/2 ML SDV IVPUSH ONE (16:48)
[2021-10-04] MEDS ORDERED: Sodium Chloride 0.9% 1,000 ML IV ONE (16:48)
[2021-10-04] MEDS ORDERED: methylPREDNISolone Sodium Succinate 125 MG/2 ML SDV IVPUSH ONE (16:53)
[2021-10-04 17:24] LABS: BLOOD UREA NITROGEN,BUN 9 mg/dL (7.0-18.0); CARBON DIOXIDE,CO2 21.2 mmol/L (21.0-32.0); CHLORIDE,CL 101 mmol/L (98-107); GLUCOSE RANDOM 112 mg/dL (74-106); LIPASE 101 U/L (73-393); POTASSIUM,K 4.8 mmol/L (3.5-5.1); SODIUM,NA 136 mmol/L (136-145)
--- NOTE | 2021-10-04 17:27 | EDM.PDOC ---
ED HPI GENERAL MEDICAL PROBLEM - General Chief Complaint: Abdominal Pain Stated Complaint: STOMACH PAIN Time Seen by Provider: 10/04/21 16:42 Source of Information: Reports: Patient History Limitations: Reports: No Limitations - History of Present Illness INITIAL COMMENTS - FREE TEXT/NARRATIVE: HISTORY AND PHYSICAL: History of present illness: Patient is a 25 year old female with a history of Crohn's colitis and a prior history of Hodgkin's lymphoma when she was 17 years old who presents emergency room today with concern of 10 out of 10 abdominal pain concern for possible C rohn's flare. Patient states that her pain started about noon today and states that since then, she has had multiple episodes of vomiting and has 10 out of 10 abdominal pain. Patient states that she has an IUD so is not . Patient states that she is been unable to take anything for her symptoms. Patient denies any blood in her vomit or stool. Patient states that she has not had any diarrhea or any other resuscitative symptoms. Patient denies fever, chills, chest pain, shortness of breath, or cough. Denies headache, neck stiff ness, change in vision, syncope, or near syncope. Denies diarrhea, constipation, or dysuria. Has not noted any blood in urine or stool. Patient has been eating and drinking appropriately prior to onset of symptoms. Review of systems: As per history of present illness and below otherwise all systems reviewed and negative. Past medical history: As per history of present illness and as reviewed below otherwise noncontributory. Surgical history: As per history of present illness and as reviewed below otherwise noncontributory. Social history: See social history for further information Family history: As per history of present illness and as reviewed below otherwise noncontributory. Physical exam: General: Patient is alert, oriented, and in no acute distress. Patient laying on exam table appearing significantly uncomfortable, holding abdomen and shaking. Initial BP in triage vitals appears low, however patient was wearing a blood pressure cuff that was too large for her arm. Once this was switched to proper blood pressure cuff sizing, repeat blood pressure 120s over 70s. Patient is also tachycardic 120s on exam. Otherwise, vitally stable and reviewed by me. HEENT: Atraumatic, normocephalic, pupils equal and reactive bilaterally, negative for conjunctival pallor or scleral icterus, mucous membranes moist, throat clear, neck supple, nontender, trachea midline. No drooling or trismus noted. No meningeal signs. No hot potato voice noted. Lungs: Clear to auscultation, breath sounds equal bilaterally, chest nontender. Heart: S1S2, regular rate and rhythm without overt murmur Abdomen: Soft, nondistended, diffuse abdominal tenderness without guarding. Negative for masses or hepatosplenomegaly. Negative for costovertebral tenderness. Pelvis: Stable nontender. Genitourinary: Deferred. Rectal: Deferred. Skin: Intact, warm, dry. No lesions or rashes noted. Extremities: Atraumatic, negative for cords or calf pain. Neurovascular unremarkable. Neuro: Awake, alert, oriented. Cranial nerves II through XII unremarkable. Cerebellum unremarkable. Motor and sensory unremarkable throughout. Exam nonfocal. Medical Decision Making: Patient is a 25-year-old female with a history of Crohn's colitis, and prior history of Hodgkin's lymphoma, currently in remission, who presents emergency room today with concern of generalized abdominal pain. Upon arrival to the ED, patient is significantly uncomfortable on exam holding her abdomen and shaking back and forth and unable to sit still. Initial blood pressure on triage was low, however, blood pressure cuff was too large for her arm. Once this was switched, her repeat blood pressure was 120s over 70s. She is tachycardic 120s on exam, is otherwise vitally stable. IV access was initiated immediately and placed on dural mechanic and continuous O2 monitoring. Once IV access was obtained, patient was given 0.5 mg of Dilaudid and Zofran and fluid bolus initiated. Will obtain lab work with plan to scan abdomen and pelvis with contrast. Will also obtain hCG. Following Dilaudid, patient is much more comfortable on exam. Repeat vital signs show that tachycardia has improved to 110s, she remains vitally stable and blood pressures 120s over 70s. See Dr. Guzmán's dictation for specific EKG interpretation. NSR without STEMI. CBC does show a notable leukocytosis of 21.47, otherwise mild derangements of CBC unremarkable. CMP mild derangements are unremarkable. Lactic acid is within normal limits. Blood cultures x2 are pending. CRP is elevated at 1.6. hCG is negative. Abdominal pelvic CT scan does show a high-grade distal small bowel obstruction due to a long segment of markedly inflamed and narrowed hyperemic terminal ileum consistent with Crohn's disease. The segment of disease small bowel is about 15 cm. 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 The apparent fistula was present in August 01, 2021. Small bowel obstruction is new. The degree of inflamed of the small bowel has worsened. On reevaluation of patient, she remains vitally stable and starting to have returning pain. Given additional 0.5 mg of Dilaudid. I also discussed with patient the importance of putting an NG tube. She would like to take time to think about this and talk to family members. I did call and speak to the general surgeon on-call, Dr. Peralta, and thoroughly discussed patient's case. He states that due to the complexity of her Crohn's disease, feels that she requires a GI specialist and is recommending higher level of care. [facility] does not have capability to take patient. [facility]-no capability [facility]-no capability [facility]-no capability [facility]- capability Patient is now agreeable to having NG tube placed. NG tube was placed and nursing staff. I did call and speak to the ED/hospitalist, Dr. Nascimento for [facility] in [place] and thoroughly discussed patient's case. Accepting of transfer. At this time, EMS transport is significantly delayed until tomorrow at an unknown time. Due to this, will fly patient. Patient transferred to flight's care in stable condition. Diagnostics: EKG, CBC, CMP, UA, serum hCG, lactate, blood cultures x2, stool ova and parasite, stool culture/sugar toxin, C. difficile, abdominal pelvic CT scan with contrast Therapeutics: NS, Zofran, Dilaudid, Solumedrol, Ciprofloxacin, Metronidazole, NG tube Impression: Small bowel obstruction secondary to severe Crohn's disease Leukocytosis Plan: Transfer to Dr. Nascimento at [facility] via flight Definitive disposition and diagnosis as appropriate pending reevaluation and review of above. Abdomen Pain Score (Numeric/FACES): 10 - Related Data Allergies Allergy/AdvReac Type Severity Reaction Status Date / Time amoxicillin [From Augmentin] Allergy Cannot Verified 10/04/21 17:04 Remember clavulanic acid Allergy Cannot Verified 10/04/21 17:04 [From Augmentin] Remember Home Meds: Home Meds Vedolizumab [Entyvio] 1 dose IV ASDIRECTED 02/19/21 [History] Past Medical History HEENT History: Reports: None Cardiovascular History: Reports: None Respiratory History: Reports: None Gastrointestinal History: Reports: Other (See Below) Other Gastrointestinal History: crohns Genitourinary History: Reports: None [employer] History: Reports: None Musculoskeletal History: Reports: None Neurological History: Reports: None Psychiatric History: Reports: None Endocrine/Metabolic History: Reports: None Hematologic History: Reports: None Immunologic History: Reports: None Oncologic (Cancer) History: Reports: Hodgkin's Lymphoma Dermatologic History: Reports: None - Infectious Disease History Infectious Disease History: Reports: None - Past Surgical History Head Surgeries/Procedures: Reports: None HEENT Surgical History: Reports: None Cardiovascular Surgical History: Reports: None GI Surgical History: Reports: None Female Surgical History: Reports: None Neurological Surgical History: Reports: None Musculoskeletal Surgical History: Reports: None Oncologic Surgical History: Reports: Bone Marrow Aspiration, Bone Marrow Transplant, Other (See Below) Other Oncologic Surgeries/Procedures: tube in back Dermatological Surgical History: Reports: None Social & Family History - Family History Family Medical History: No Pertinent Family History - Tobacco Use Second Hand Smoke Exposure: No - Caffeine Use Caffeine Use: Reports: None - Recreational Drug Use Recreational Drug Use: No ED ROS GENERAL - Review of Systems Review Of Systems: Comprehensive ROS is negative, except as noted in HPI. ED EXAM, GENERAL - Physical Exam Exam: See Below (see dictation) Course - Vital Signs Last Recorded V/S: Last Vital Signs Temp 97.1 F 10/04/21 22:06 Pulse 100 10/04/21 22:06 Resp 20 10/04/21 22:06 BP 121/78 10/04/21 22:06 Pulse Ox 98 10/04/21 22:06 - Orders/Labs/Meds Orders: Active Orders 24 hr Category Date Time Status Gastrointestinal Tube Mgmt [RC] ASDIRECTED Care 10/04/21 20:07 Active Abdomen 1V Upright [CR] Stat Exams 10/04/21 20:07 Ordered Chest 1V Frontal [CR] Stat Exams 10/04/21 20:07 Ordered BLOOD SMEARS TO PATHOLOGIST [REF] Stat Lab 10/04/21 16:50 Received C DIFFICILE AG/TOXIN W/REFLEX [RM] Stat Lab 10/04/21 16:49 Ordered CULTURE BLOOD [BC] Stat Lab 10/04/21 17:25 Received CULTURE BLOOD [BC] Stat Lab 10/04/21 17:29 Received OVA & PARASITES BY IMMUNOASSAY [MREF] Stat Lab 10/04/21 16:49 Ordered STOOL CULTURE/SHIGA TOXIN [MREF] Stat Lab 10/04/21 16:49 Ordered Ciprofloxacin in D5W [Cipro in D5W 400 MG/200 ML] 400 Med 10/04/21 20:15 Active mg Premix Bag 1 bag IV Q12H Sodium Chloride 0.9% [Saline Flush] Med 10/04/21 16:43 Active 10 ml FLUSH ASDIRECTED PRN Sodium Chloride 0.9% [Saline Flush] Med 10/04/21 16:43 Active 2.5 ml FLUSH ASDIRECTED PRN Blood Culture x2 Reflex Set [OM.PC] Stat Oth 10/04/21 17:03 Ordered Nasogastric Orogastric Tube Insertion [OM.PC] Stat Oth 10/04/21 20:07 Ordered Saline Lock Insert [OM.PC] Stat Oth 10/04/21 16:43 Ordered Medication Orders Ciprofloxacin/Dextrose 400 mg/ (Premix) 200 mls @ 200 mls/hr IV Q12H [facility] Last Admin: 10/04/21 20:27 Dose: 200 mls/hr Documented by: THI Sodium Chloride (Sodium Chloride 0.9% 10 Ml Syringe) 10 ml FLUSH ASDIRECTED PRN PRN Reason: Keep Vein Open Last Admin: 10/04/21 16:57 Dose: 10 ml Documented by: ZABRINA Sodium Chloride (Sodium Chloride 0.9% 2.5 Ml Syringe) 2.5 ml FLUSH ASDIRECTED PRN PRN Reason: Keep Vein Open Last Admin: 10/04/21 16:57 Dose: 2.5 ml Documented by: ZABRINA Labs: Laboratory Tests 10/04/21 10/04/21 10/04/21 Range/Units 16:50 16:50 16:50 WBC 21.47 H (4.0-11.0) K/uL RBC 5.56 (4.30-5.90) M/uL Hgb 17.0 H (12.0-16.0) g/dL Hct 47.7 H (36.0-46.0) % MCV 85.8 (80.0-98.0) fL MCH 30.6 (27.0-32.0) pg MCHC 35.6 (31.0-37.0) g/dL RDW Std Deviation 39.9 (28.0-62.0) fl RDW Coeff of Pallavi 13 (11.0-15.0) % Plt Count 401 H (150-400) K/uL MPV 10.00 (7.40-12.00) fL Neut % (Auto) 91.8 H (48.0-80.0) % Lymph % (Auto) 5.4 L (16.0-40.0) % Frio % (Auto) 2.6 (0.0-15.0) % Eos % (Auto) 0.1 (0.0-7.0) % Baso % (Auto) 0.1 (0.0-1.5) % Neut # (Auto) 19.7 H (1.4-5.7) K/uL Lymph # (Auto) 1.2 (0.6-2.4) K/uL Frio # (Auto) 0.6 (0.0-0.8) K/uL Eos # (Auto) 0.0 (0.0-0.7) K/uL Baso # (Auto) 0.0 (0.0-0.1) K/uL Nucleated RBC % 0.0 /100WBC Nucleated RBCs # 0 K/uL ESR (0-19) mm/hr Sodium 136 (136-145) mmol/L Potassium 4.8 (3.5-5.1) mmol/L Chloride 101 (98-107) mmol/L Carbon Dioxide 21.2 (21.0-32.0) mmol/L BUN 9 (7.0-18.0) mg/dL Creatinine 0.8 (0.6-1.0) mg/dL Est Cr Clr Drug Dosing 93.64 mL/min Estimated GFR (MDRD) > 60.0 ml/min Glucose 112 H (74-106) mg/dL Lactic Acid (0.4-2.0) mmol/L Calcium 9.5 (8.5-10.1) mg/dL Magnesium (1.8-2.4) mg/dL Total Bilirubin 0.7 (0.2-1.0) mg/dL AST 35 (15-37) IU/L ALT 26 (14-63) IU/L Alkaline Phosphatase 96 (46-116) U/L C-Reactive Protein 1.60 H (0.00-0.90) mg/dL Total Protein 9.1 H (6.4-8.2) g/dL Albumin 3.9 (3.4-5.0) g/dL Globulin 5.2 H (2.6-4.0) g/dL Albumin/Globulin Ratio 0.8 L (0.9-1.6) Lipase 101 (73-393) U/L HCG, Qual NEGATIVE (NEG) SARS-CoV-2 RNA (JOSSUE) (NEGATIVE) 10/04/21 10/04/21 10/04/21 Range/Units 16:50 16:50 17:29 WBC (4.0-11.0) K/uL RBC (4.30-5.90) M/uL Hgb (12.0-16.0) g/dL Hct (36.0-46.0) % MCV (80.0-98.0) fL MCH (27.0-32.0) pg MCHC (31.0-37.0) g/dL RDW Std Deviation (28.0-62.0) fl RDW Coeff of Pallavi (11.0-15.0) % Plt Count (150-400) K/uL MPV (7.40-12.00) fL Neut % (Auto) (48.0-80.0) % Lymph % (Auto) (16.0-40.0) % Frio % (Auto) (0.0-15.0) % Eos % (Auto) (0.0-7.0) % Baso % (Auto) (0.0-1.5) % Neut # (Auto) (1.4-5.7) K/uL Lymph # (Auto) (0.6-2.4) K/uL Frio # (Auto) (0.0-0.8) K/uL Eos # (Auto) (0.0-0.7) K/uL Baso # (Auto) (0.0-0.1) K/uL Nucleated RBC % /100WBC Nucleated RBCs # K/uL ESR 3 (0-19) mm/hr Sodium (136-145) mmol/L Potassium (3.5-5.1) mmol/L Chloride (98-107) mmol/L Carbon Dioxide (21.0-32.0) mmol/L BUN (7.0-18.0) mg/dL Creatinine (0.6-1.0) mg/dL Est Cr Clr Drug Dosing mL/min Estimated GFR (MDRD) ml/min Glucose (74-106) mg/dL Lactic Acid 1.9 (0.4-2.0) mmol/L Calcium (8.5-10.1) mg/dL Magnesium 2.3 (1.8-2.4) mg/dL Total Bilirubin (0.2-1.0) mg/dL AST (15-37) IU/L ALT (14-63) IU/L Alkaline Phosphatase (46-116) U/L C-Reactive Protein (0.00-0.90) mg/dL Total Protein (6.4-8.2) g/dL Albumin (3.4-5.0) g/dL Globulin (2.6-4.0) g/dL Albumin/Globulin Ratio (0.9-1.6) Lipase (73-393) U/L HCG, Qual (NEG) SARS-CoV-2 RNA (JOSSUE) (NEGATIVE) 10/04/21 Range/Units 20:17 WBC (4.0-11.0) K/uL RBC (4.30-5.90) M/uL Hgb (12.0-16.0) g/dL Hct (36.0-46.0) % MCV (80.0-98.0) fL MCH (27.0-32.0) pg MCHC (31.0-37.0) g/dL RDW Std Deviation (28.0-62.0) fl RDW Coeff of Pallavi (11.0-15.0) % Plt Count (150-400) K/uL MPV (7.40-12.00) fL Neut % (Auto) (48.0-80.0) % Lymph % (Auto) (16.0-40.0) % Frio % (Auto) (0.0-15.0) % Eos % (Auto) (0.0-7.0) % Baso % (Auto) (0.0-1.5) % Neut # (Auto) (1.4-5.7) K/uL Lymph # (Auto) (0.6-2.4) K/uL Frio # (Auto) (0.0-0.8) K/uL Eos # (Auto) (0.0-0.7) K/uL Baso # (Auto) (0.0-0.1) K/uL Nucleated RBC % /100WBC Nucleated RBCs # K/uL ESR (0-19) mm/hr Sodium (136-145) mmol/L Potassium (3.5-5.1) mmol/L Chloride (98-107) mmol/L Carbon Dioxide (21.0-32.0) mmol/L BUN (7.0-18.0) mg/dL Creatinine (0.6-1.0) mg/dL Est Cr Clr Drug Dosing mL/min Estimated GFR (MDRD) ml/min Glucose (74-106) mg/dL Lactic Acid (0.4-2.0) mmol/L Calcium (8.5-10.1) mg/dL Magnesium (1.8-2.4) mg/dL Total Bilirubin (0.2-1.0) mg/dL AST (15-37) IU/L ALT (14-63) IU/L Alkaline Phosphatase (46-116) U/L C-Reactive Protein (0.00-0.90) mg/dL Total Protein (6.4-8.2) g/dL Albumin (3.4-5.0) g/dL Globulin (2.6-4.0) g/dL Albumin/Globulin Ratio (0.9-1.6) Lipase (73-393) U/L HCG, Qual (NEG) SARS-CoV-2 RNA (JOSSUE) NEGATIVE (NEGATIVE) Meds: Medications Generic Name Dose Route Start Last Admin Trade Name Freq PRN Reason Stop Dose Admin Ciprofloxacin/Dextrose 400 mg/ 200 mls @ 200 mls/hr 10/04/21 20:15 10/04/21 20:27 Premix IV 200 mls/hr Q12H ALLIE Administration Sodium Chloride 10 ml 10/04/21 16:43 10/04/21 16:57 Sodium Chloride 0.9% 10 Ml Syringe FLUSH 10 ml ASDIRECTED PRN Administration Keep Vein Open Sodium Chloride 2.5 ml 10/04/21 16:43 10/04/21 16:57 Sodium Chloride 0.9% 2.5 Ml Syringe FLUSH 2.5 ml ASDIRECTED PRN Administration Keep Vein Open Discontinued Medications Generic Name Dose Route Start Last Admin Trade Name Matthew PRN Reason Stop Dose Admin Hydromorphone HCl 0.5 mg 10/04/21 16:48 10/04/21 16:55 Hydromorphone 2 Mg/Ml Syringe IVPUSH 10/04/21 16:49 0.5 mg ONETIME ONE Administration Hydromorphone HCl 0.5 mg 10/04/21 19:24 10/04/21 19:33 Hydromorphone 2 Mg/Ml Syringe IVPUSH 10/04/21 19:25 0.5 mg ONETIME ONE Administration Sodium Chloride 1,000 mls @ 999 mls/hr 10/04/21 16:48 10/04/21 16:56 Normal Saline IV 10/04/21 17:48 999 mls/hr STAT ONE Administration Metronidazole 500 mg/ Premix 100 mls @ 100 mls/hr 10/04/21 20:15 10/04/21 20:27 IV 10/04/21 21:14 100 mls/hr ONETIME ONE Administration Iopamidol 100 ml 10/04/21 17:58 10/04/21 17:58 Iopamidol 755 Mg/Ml 500 Ml Multipack Bottle IVPUSH 10/04/21 17:59 100 ml ONETIME STA Administration Lidocaine HCl Confirm 10/04/21 20:52 Lidocaine 2% Viscous Solution 15 Ml Cup Administered 10/04/21 20:53 Dose 45 ml .ROUTE .STK-MED ONE Methylprednisolone Sodium Succinate 125 mg 10/04/21 16:53 10/04/21 17:00 Methylprednisolone Sodium Succinate 125 Mg/2 Ml Sdv IVPUSH 10/04/21 16:54 125 mg ONETIME ONE Administration Ondansetron HCl 4 mg 10/04/21 16:48 10/04/21 16:55 Ondansetron 4 Mg/2 Ml Sdv IVPUSH 10/04/21 16:49 4 mg ONETIME ONE Administration Departure - Departure Time of Disposition: 20:26 Disposition: DC/[facility]fer to [facility] 02 Clinical Impression: Small bowel obstruction, Crohn's disease of ileum with complication - Discharge Information Referrals: PCP,None [Primary Care Provider] - Forms: ED Department Discharge Sepsis Event Note (ED) - Evaluation Sepsis Screening Result: No Definite Risk - Focused Exam Vital Signs: Vital Signs Temp Pulse Resp BP Pulse Ox 10/04/21 22:06 97.1 F 100 20 121/78 98 10/04/21 17:47 100 20 102/69 97 10/04/21 17:35 103 H 20 126/59 L 97 10/04/21 17:25 95 20 120/66 97 10/04/21 17:14 96 20 107/43 L 98 10/04/21 17:10 124 H 20 55/32 L 97 10/04/21 17:05 97.5 F 63 20 88/36 L 97 10/04/21 16:56 140 H 20 88/36 L 98 - My Orders Last 24 Hours: My Active Orders 10/04/21 16:43 Sodium Chloride 0.9% [Saline Flush] 10 ml FLUSH ASDIRECTED PRN Sodium Chloride 0.9% [Saline Flush] 2.5 ml FLUSH ASDIRECTED PRN Saline Lock Insert [OM.PC] Stat 10/04/21 16:49 C DIFFICILE AG/TOXIN W/REFLEX [RM] Stat OVA & PARASITES BY IMMUNOASSAY [MREF] Stat STOOL CULTURE/SHIGA TOXIN [MREF] Stat 10/04/21 16:50 BLOOD SMEARS TO PATHOLOGIST [REF] Stat 10/04/21 17:03 Blood Culture x2 Reflex Set [OM.PC] Stat 10/04/21 17:25 CULTURE BLOOD [BC] Stat 10/04/21 17:29 CULTURE BLOOD [BC] Stat 10/04/21 20:07 Gastrointestinal Tube Mgmt [RC] ASDIRECTED Abdomen 1V Upright [CR] Stat Chest 1V Frontal [CR] Stat Nasogastric Orogastric Tube Insertion [OM.PC] Stat 10/04/21 20:15 Ciprofloxacin in D5W [Cipro in D5W 400 MG/200 ML] 400 mg Premix Bag 1 bag IV Q12H - Assessment/Plan Last 24 Hours: My Active Orders 10/04/21 16:43 Sodium Chloride 0.9% [Saline Flush] 10 ml FLUSH ASDIRECTED PRN Sodium Chloride 0.9% [Saline Flush] 2.5 ml FLUSH ASDIRECTED PRN Saline Lock Insert [OM.PC] Stat 10/04/21 16:49 C DIFFICILE AG/TOXIN W/REFLEX [RM] Stat OVA & PARASITES BY IMMUNOASSAY [MREF] Stat STOOL CULTURE/SHIGA TOXIN [MREF] Stat 10/04/21 16:50 BLOOD SMEARS TO PATHOLOGIST [REF] Stat 10/04/21 17:03 Blood Culture x2 Reflex Set [OM.PC] Stat 10/04/21 17:25 CULTURE BLOOD [BC] Stat 10/04/21 17:29 CULTURE BLOOD [BC] Stat 10/04/21 20:07 Gastrointestinal Tube Mgmt [RC] ASDIRECTED Abdomen 1V Upright [CR] Stat Chest 1V Frontal [CR] Stat Nasogastric Orogastric Tube Insertion [OM.PC] Stat 10/04/21 20:15 Ciprofloxacin in D5W [Cipro in D5W 400 MG/200 ML] 400 mg Premix Bag 1 bag IV Q12H
[2021-10-04 17:48] VITALS: PULSE 100
[2021-10-04] MEDS ORDERED: Iopamidol 755 MG/ML 500 ML Multipack Bottle IVPUSH STA (17:58)
--- NOTE | 2021-10-04 18:11 | PCM.EKG ---
#1 Interpretation EKG Date: 10/04/21 Time: 17:37 Rhythm: NSR Rate (Beats/Min): 98 ST-T: Normal
--- NOTE | 2021-10-04 18:51 | CT ---
INDICATION: History of Crohn`s disease COMPARISON: Portions of a pelvic CT from August 01, 2021 TECHNIQUE: CT examination of the abdomen and pelvis was performed following the uneventful intravenous administration of 100 cc of Isovue 370. Thin section axial images were obtained from the lung bases through the pubic symphysis. Oral contrast was not administered. Please note that all CT scans at this facility use dose modulation, iterative reconstruction, and/or weight-based dosing when appropriate to reduce radiation dose to as low as reasonably achievable. FINDINGS: LUNG BASES: Minimal atelectasis. Heart size normal and the lung bases. LIVER/BILIARY SYSTEM:Hepatic steatosis. No focal mass or biliary ductal dilatation.The gallbladder appears normal ADRENALS: Normal KIDNEYS, URETERS and BLADDER:The kidneys appear normal. No visible mass, calculus or hydronephrosis. The ureters and bladder as visualized appear normal. SPLEEN:Normal appearance. PANCREAS: Appears normal. RETROPERITONEUM and MESENTERY: There is no mass, adenopathy or aortic aneurysm. GASTROINTESTINAL SYSTEM: There is a high-grade distal small-bowel obstruction. This is due to a profoundly narrowed, inflamed and hyperemic segment of distal small bowel. The affected small bowel is terminal ileum. The affected segment measures about 15 centimeters but is more inflamed towards the ilial side rather than the colonic side. There also findings suggesting an ileo sigmoid fistula best seen on axial image 125 of series 201. The fistula was probably present August 01, 2021. The bowel loop is more inflamed than was previously and the obstruction is new PELVIS: Mild free fluid. IUD in the uterus. OSSEOUS STRUCTURES and ABDOMINAL WALL: There is an age-appropriate appearance of the osseous structures.No significant abdominal wall defect. OTHER: No free fluid or free air. IMPRESSION: 1. High-grade distal small-bowel obstruction due to a long segment markedly inflamed, narrowed and hyperemic terminal ileum consistent with Crohn`s disease. The segment of disease small-bowel is about 15 centimeters. 2. 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 This apparent fistula was present August 01, 2021. The small bowel obstruction is new. The degree of inflammation of the small bowel has worsened. 3. I discussed the above findings with Deisi Pittman at 6:45 p.m. on October 04, [address] note that all CT scans at this facility use dose modulation, iterative reconstruction, and/or weight-based dosing when appropriate to reduce radiation dose to as low as reasonably achievable. Dictated by David Grossman MD @ 10/04/2021 6:50:29 PM (Electronically Signed)
[2021-10-04] MEDS ORDERED: metroNIDAZOLE/Normal Saline 500 MG in Premix Bag 1 BAG IV ONE (20:15)
[2021-10-04] MEDS ORDERED: Ciprofloxacin in D5W 400 MG in Premix Bag 1 BAG IV SCH ×2 (20:15)
[2021-10-04] MEDS ORDERED: Lidocaine 2% Viscous Solution 15 ML Cup ONE (20:52)
[2021-10-04] MEDS ORDERED: Lidocaine 2% Viscous Solution 15 ML Cup PO ONE (20:52)
[2021-10-04] MEDS ORDERED: Lidocaine 2% Viscous Solution 100 ML Bottle PO ONE (21:00)
[2021-10-04 22:07] VITALS: BP 121/78
[2021-10-05] MEDS ORDERED: Lidocaine 2% Viscous Solution 15 ML Cup PO ONE (01:40)
== END 2021-10-04 22:30 ==
LOC: MW.ED 15:52
DX: K50.012 Crohn's disease of small intestine with intestinal obstruction (principal); D72.829 Elevated white blood cell count, unspecified; Z88.0 Allergy status to penicillin; Z88.1 Allergy status to other antibiotic agents; Z20.822 Contact with and (suspected) exposure to COVID-19
CPT/HCPCS: 36415; 74177; 80053; 83605; 83690; 83735; 84703; 85025; 85652; 86140; 87040; 87635; 93005; 96365; 96368; 96375; 96376; 99285; J0744; J1170; J2405; J2930; J3490; J7030; Q9967; A9270-GY; U0002

== ENCOUNTER 2022-05-07 10:23 | Emergency (ER) | payer BC, OTHER ==
[2022-05-07] MEDS ORDERED: Sodium Chloride 0.9% 1,000 ML IV ONE (10:29)
[2022-05-07] MEDS ORDERED: Sodium Chloride 0.9% 2.5 ML Syringe FLUSH PRN (10:29)
[2022-05-07] MEDS ORDERED: Sodium Chloride 0.9% 10 ML Syringe FLUSH PRN (10:29)
[2022-05-07 10:40] VITALS: BP 107/71; PULSE 88
[2022-05-07] MEDS ORDERED: Ketorolac 30 MG/ML SDV IVPUSH ONE (10:45)
[2022-05-07] MEDS ORDERED: Ondansetron 4 MG/2 ML SDV IVPUSH ONE (10:45)
[2022-05-07] MEDS ORDERED: Morphine 2 MG/ML SYRINGE IVPUSH ONE (11:12)
[2022-05-07 11:18] LABS: CARBON DIOXIDE,CO2 27.4 mmol/L (21.0-32.0); POTASSIUM,K 4.1 mmol/L (3.5-5.1)
[2022-05-07 11:27] LABS: CORONAVIRUS COVID-19 NAA NEGATIVE (NEGATIVE); INFLUENZA A NAA NEGATIVE (NEGATIVE); INFLUENZA B NAA NEGATIVE (NEGATIVE)
[2022-05-07] MEDS ORDERED: Iopamidol 755 MG/ML 500 ML Multipack Bottle IVPUSH STA (11:36)
== END 2022-05-07 13:10 | disposition home or self-care (01) ==
LOC: MW.ED 10:23
DX: K50.90 Crohn's disease, unspecified, without complications (principal); Z20.822 Contact with and (suspected) exposure to COVID-19; Z79.899 Other long term (current) drug therapy; Z88.0 Allergy status to penicillin; Z88.8 Allergy status to other drugs, medicaments and biological substances
CPT/HCPCS: 0240U; 36415; 74177; 80053; 81003; 83690; 84703; 85025; 96361; 96374; 96375; 99284; J1885; J2270; J2405; J3490; J7030; Q9967